=== PATIENT | female | born 1950 | race African-American/Black ===

== ENCOUNTER 2018-03-15 14:29 | Inpatient (IN) | payer MEDICARE ==
[~2018-03-15] VITALS: Ht 170.2 cm; Wt 99.3 kg
[2018-03-15 15:03] VITALS: BP 126/77
--- NOTE | 2018-03-15 15:09 | Emergency Room Report ---
History of Present Illness General Chief Complaint: Syncope Source: Patient, Family Member, EMS Present Illness HPI This patient was discharged from [facility] today. She was being brought home by her daughter and when she was getting out of the car to go home she noted that the patient was feeling shaky and noted that this was similar to previous episodes she has had which she is currently in workup for. She states that her mom then had an episode that she states she loses consciousness. She states that she did call EMS and 911 but by the time EMS arrived her mom is back to normal. She describes episodes as her mom's eyes rolling back in her head and she becomes unresponsive. She also does yawning and lip smacking usually prior to the episode. She has had many of these episodes and was supposed to see a neurologist and get an MRI yesterday but did not get this because she was admitted to [facility]. She is admitted to [facility] for an obstructive kidney stone causing kidney injury. She had been seen by a urologist and has an indwelling Frederick catheter. The stone was not removed and the daughter states that the urologist thought the stone would pass on its own. The patient has no current complaints. She denies pain. She denies nausea or vomiting. The patient is sleepy but will answer simple questions slowly. Allergies: Coded Allergies: No Known Allergies (Unverified , 03/15/18) Patient History Past Medical History: see triage record, other - pituitary tumor, hypothyroid ( on prednisone and synthroid) Social History: Denies: smoking, alcohol use, drug use Now: No Reviewed Nursing Documentation: PMH: Agreed; PSxH: Agreed Nursing Documentation-PMH Past Medical History: No History, Except For Review of Systems All Other Systems: negative except mentioned in HPI Physical Exam Vital Signs Date Time Temp Pulse Resp B/P (MAP) Pulse Ox O2 Delivery O2 Flow Rate FiO2 03/15/18 14:32 98.0 80 18 100/61 98 Room Air 98.1 Sp02 EP Interpretation: reviewed, normal General Appearance: no apparent distress, GCS 15, non-toxic, other - sleepy but arousable to answer yes/no and very basic questions. Head: normocephalic, atraumatic Eyes: bilateral eye normal inspection, bilateral eye PERRL ENT: hearing grossly normal, normal pharynx, no angioedema, normal voice Neck: full range of motion, supple/symm/no masses Respiratory: chest non-tender, lungs clear, normal breath sounds, no respiratory distress, no retraction, no accessory muscle use, speaking full sentences Cardiovascular #1: regular rate, rhythm, no edema Gastrointestinal: normal bowel sounds, non tender, soft, non-distended, no guarding, no rebound Rectal: deferred Musculoskeletal: back normal, normal range of motion, non-tender Neurologic: responsive, motor strength/tone normal, sensory intact, speech normal, other - sleepy, mild L. facial droop (family says this is baseline) Psychiatric: judgement/insight normal, mood/affect normal, no suicidal/ homicidal ideation Skin: normal color, no rash, warm/dry, well hydrated Medical Decision Making Diagnostic Impression: Primary Impression: CVA (cerebral vascular accident) Additional Impression: Seizure ER Course This patient presents with 2 episodes that historically are consistent with seizures. The patient also presented with a mental status that is most consistent with a post ictal state. I did obtain an MRI of the brain for concern of enlarging pituitary tumor. The pituitary tumor was identified, however, there was a CVA of the left frontal lobe identified on MRI. The patient was given aspirin and Keppra. The patient is admitted for further evaluation and treatment. Laboratory Tests Test 03/15/18 17:30 White Blood Count 11.2 K/UL (4.8-10.8) H Red Blood Count 4.43 M/UL (4.20-5.40) Hemoglobin 10.7 G/DL (12.0-16.0) L Hematocrit 32.4 % (37.0-47.0) L Mean Corpuscular Volume 73 FL (80-99) L Mean Corpuscular Hemoglobin 24.1 PG (27.0-31.0) L Mean Corpuscular Hemoglobin Concent 33.0 G/DL (32.0-36.0) Red Cell Distribution Width 11.8 % (11.6-14.8) Platelet Count 223 K/UL (150-450) Mean Platelet Volume 9.9 FL (6.5-10.1) Neutrophils (%) (Auto) 66.3 % (45.0-75.0) Lymphocytes (%) (Auto) 20.8 % (20.0-45.0) Monocytes (%) (Auto) 8.6 % (1.0-10.0) Eosinophils (%) (Auto) 2.3 % (0.0-3.0) Basophils (%) (Auto) 2.0 % (0.0-2.0) Prothrombin Time 12.6 SEC (9.30-11.50) H Prothrombin Time INR 1.2 (0.9-1.1) H PTT 27 SEC (23-33) Sodium Level 140 MMOL/L (136-145) Potassium Level 3.7 MMOL/L (3.5-5.1) Chloride Level 108 MMOL/L (98-107) H Carbon Dioxide Level 20 MMOL/L (21-32) L Anion Gap 12 mmol/L (5-15) Blood Urea Nitrogen 15 mg/dL (7-18) Creatinine 0.8 MG/DL (0.55-1.30) Estimate Glomerular Filtration Rate > 60 mL/min (>60) Glucose Level 100 MG/DL (74-106) Calcium Level 9.4 MG/DL (8.5-10.1) Total Bilirubin 0.7 MG/DL (0.2-1.0) Aspartate Amino Transferase (AST) 18 U/L (15-37) Alanine Aminotransferase (ALT) 17 U/L (12-78) Alkaline Phosphatase 82 U/L (46-116) Total Creatine Kinase 63 U/L (26-308) Creatine Kinase MB 0.5 NG/ML (0.0-3.6) Creatine Kinase MB Relative Index 0.7 Troponin I 0.010 ng/mL (0.000-0.056) Total Protein 6.8 G/DL (6.4-8.2) Albumin 3.3 G/DL (3.4-5.0) L Globulin 3.5 g/dL Albumin/Globulin Ratio 0.9 (1.0-2.7) L Thyroid Stimulating Hormone (TSH) 0.227 uiU/mL (0.358-3.740) Free Thyroxine Pending EKG Diagnostic Results Rate: normal Rhythm: NSR ST Segments: no acute changes Rhythm Strip Diag. Results EP Interpretation: yes Rate: 70's Rhythm: NSR, no PVC's, no ectopy Chest X-Ray Diagnostic Results Chest X-Ray Diagnostic Results : Chest X-Ray Ordered: Yes # of Views/Limited/Complete: 1 View Indication: Other - syncope EP Interpretation: No Interpretation: other - Questionable pulmonary interstitial congestive change. Impression: Other - See above Electronically Signed by: Wei Last Vital Signs Date Time Temp Pulse Resp B/P (MAP) Pulse Ox O2 Delivery O2 Flow Rate FiO2 03/15/18 15:03 98.1 79 18 126/77 98 Room Air 98.1 Disposition: ADMITTED INPATIENT Condition: Serious Iris Sr DO Mar 15, 2018 15:09
--- NOTE | 2018-03-15 15:43 | Diagnostic Imaging Report ---
Indication: Shortness of breath Technique: One view of the chest Comparison: none Findings: There is equivocal mild interstitial congestion. No focal airspace consolidation. Pleural spaces are clear. The heart size is borderline enlarged. The aorta is tortuous and ectatic Impression: Equivocal mild interstitial congestive changes. Correlate with clinical findings
--- NOTE | 2018-03-15 15:50 | Diagnostic Imaging Report ---
Indications: Altered mental status Technique: Spiral acquisitions obtained through the brain. Angled axial and coronal 5 x 5 mm slices were reconstructed. Total dose length product 1333.86 mGycm. CTDI vol(s) 70.38 mGy. Dose reduction achieved using automated exposure control Comparison: None. Findings: There is a mass within and expanding the sella turcica, also projecting into the suprasellar region. This is somewhat hyperattenuating, measures 2.3 cm transverse by 1.7 cm AP by 2.3 cm craniocaudad. This results in mild local mass effect, displacing the adjacent hypothalamus posterior and cephalad and posterior frontal cortical structures anterior and cephalad to a slight extent. There is evidence of prior right frontotemporal parietal craniotomy/craniectomy. There is age-related enlargement of the ventricles and extra axial CSF spaces. There is some periventricular deep white matter low-attenuation, consistent with chronic ischemic change. Multiple old lacunar infarcts are seen in the bilateral basal ganglia. There is some encephalomalacia in the right insular region which could represent an old lacunar infarct or could be encephalomalacia related to the prior surgery. No acute intracranial hemorrhage nor edema. No mass effect or midline shift other than the findings reported above. No evidence of acute calvarial injury. Visualized orbits and sinuses are unremarkable. The mastoids are clear Impression: Evidence of prior right frontotemporal parietal craniotomy/craniectomy. Correlate with surgical history 2.3 x 1.7 x 2.3 cm sellar/suprasellar mass, as described. Differential considerations include pituitary macroadenoma, meningioma, among other possibilities. Possibly related to the prior surgical exposure-correlate with prior surgical findings and any other prior imaging studies that may be available Mild local mass effect related to the above. No significant mass effect otherwise Negative for acute intracranial bleed or edema Right insular encephalomalacia, may be an old lacunar infarct versus related to prior surgery Other bilateral basal ganglia lacunar infarcts, as described Other chronic and age-related changes, as described The CT scanner at [facility] is accredited by the [employer] and the scans are performed using protocols designed to limit radiation exposure to as low as reasonably achievable to attain images of sufficient resolution adequate for diagnostic evaluation.
[2018-03-15] MEDS ORDERED: levETIRAcetam 500mg/NS100ml 100 ML IVPB ONE (16:45)
[2018-03-15 17:46] LABS: EOSINOPHILS % (AUTO) 2.3 % (0.0-3.0); HEMATOCRIT 32.4 % (37.0-47.0); HEMOGLOBIN 10.7 G/DL (12.0-16.0); LYMPHOCYTES % (AUTO) 20.8 % (20.0-45.0); MEAN CORPUSCULAR VOLUME 73 FL (80-99); MONOCYTES % (AUTO) 8.6 % (1.0-10.0); NEUTROPHILS % (AUTO) 66.3 % (45.0-75.0); PLATELET COUNT 223 K/UL (150-450); RED BLOOD COUNT 4.43 M/UL (4.20-5.40); RED CELL DISTRIBUTION WIDTH 11.8 % (11.6-14.8); WHITE BLOOD COUNT 11.2 K/UL (4.8-10.8)
[2018-03-15 17:57] LABS: INR 1.2 (0.9-1.1)
[2018-03-15 17:59] LABS: ANION GAP 12 mmol/L (5-15); BLOOD UREA NITROGEN 15 mg/dL (7-18); CALCIUM 9.4 MG/DL (8.5-10.1); CARBON DIOXIDE 20 MMOL/L (21-32); CHLORIDE 108 MMOL/L (98-107); CREATININE 0.8 MG/DL (0.55-1.30); POTASSIUM 3.7 MMOL/L (3.5-5.1); SODIUM 140 MMOL/L (136-145)
[2018-03-15 18:10] VITALS: BP 155/92
[2018-03-15 18:14] LABS: ALANINE AMINOTRANSFERASE 17 U/L (12-78); ALBUMIN 3.3 G/DL (3.4-5.0); ALBUMIN/GLOBULIN RATIO 0.9 (1.0-2.7); ALKALINE PHOSPHATASE 82 U/L (46-116); ASPARTATE AMINO TRANSFERASE 18 U/L (15-37); BILIRUBIN,TOTAL 0.7 MG/DL (0.2-1.0); CKMB 0.5 NG/ML (0.0-3.6); CREATINE KINASE 63 U/L (26-308)
[2018-03-15 18:49] LABS: APPEARANCE,URINE CLOUDY; BILIRUBIN, URINE NEGATIVE (NEGATIVE); GLUCOSE, URINE (UA) NEGATIVE (NEGATIVE); KETONES,URINE 1+ (NEGATIVE); LEUKOCYTE ESTERASE ,URINE 1+ (NEGATIVE); NITRITE,URINE NEGATIVE (NEGATIVE); PH,URINE 6.5 (4.5-8.0); PROTEIN,URINE 3+ (NEGATIVE); UROBILINOGEN,URINE 4 MG/DL (0.0-1.0)
[2018-03-15 18:54] LABS: COLOR,URINE YELLOW
[2018-03-15] MEDS ORDERED: Mylanta II UD 30ml ORAL PRN (19:15)
[2018-03-15] MEDS ORDERED: Morphine Sulfate 2mg/ml Inj(IV/IM USE ONLY) IVP PRN (19:15)
[2018-03-15] MEDS ORDERED: Zolpidem 5mg tab ORAL PRN (19:15)
[2018-03-15] MEDS ORDERED: LORazepam Inj 2mg/ml 1ml IV PRN (19:15)
[2018-03-15] MEDS ORDERED: Miralax 17gm pkt ORAL PRN (19:15)
[2018-03-15] MEDS: D5NS 1,000 ML IV SCH (20:19)
[2018-03-15] MEDS: cloNIDine 0.2mg Tab ORAL PRN ×2 (21:18→22:19)
[2018-03-15] MEDS: Heparin 5000 units/ml inj SUBQ SCH (21:19)
[2018-03-16] VITALS: BP 141/83
[2018-03-16 04:00] VITALS: BP 132/77
[2018-03-16 07:52] LABS: BASOPHILS % (AUTO) 1.4 % (0.0-2.0); EOSINOPHILS % (AUTO) 5.9 % (0.0-3.0); HEMATOCRIT 32.2 % (37.0-47.0); HEMOGLOBIN 9.9 G/DL (12.0-16.0); LYMPHOCYTES % (AUTO) 33.1 % (20.0-45.0); MEAN CORPUSCULAR VOLUME 73 FL (80-99); MONOCYTES % (AUTO) 9.8 % (1.0-10.0); NEUTROPHILS % (AUTO) 49.8 % (45.0-75.0); PLATELET COUNT 195 K/UL (150-450); RED BLOOD COUNT 4.39 M/UL (4.20-5.40); WHITE BLOOD COUNT 8.7 K/UL (4.8-10.8)
[2018-03-16 07:57] LABS: ALANINE AMINOTRANSFERASE 15 U/L (12-78); ALBUMIN 2.9 G/DL (3.4-5.0); ALBUMIN/GLOBULIN RATIO 0.9 (1.0-2.7); ALKALINE PHOSPHATASE 72 U/L (46-116); ANION GAP 9 mmol/L (5-15); ASPARTATE AMINO TRANSFERASE 17 U/L (15-37); BILIRUBIN,TOTAL 0.6 MG/DL (0.2-1.0); BLOOD UREA NITROGEN 12 mg/dL (7-18); CALCIUM 8.7 MG/DL (8.5-10.1); CARBON DIOXIDE 23 MMOL/L (21-32); CHLORIDE 110 MMOL/L (98-107); CREATININE 0.8 MG/DL (0.55-1.30); POTASSIUM 3.5 MMOL/L (3.5-5.1); SODIUM 142 MMOL/L (136-145)
[2018-03-16 08:00] VITALS: BP 141/82
[2018-03-16] MEDS: Heparin 5000 units/ml inj SUBQ SCH ×2 (08:20→22:28)
--- NOTE | 2018-03-16 10:10 | Diagnostic Imaging Report ---
Indication: Seizure 67-year-old female. Altered mental status. Syncopal episode. Technique: The head was imaged in a 1.5 Alba magnet. Sequences obtained include sagittal and axial T1 FLAIR, axial T2 fast spin echo with fat saturation, axial T2 FLAIR, diffusion and ADC map. Comparison: CT head 03/15/2018 There is a 10 x 5 mm focus of diffusion restriction within the left frontal white matter adjacent to the lateral ventricle. This is consistent with an acute nonhemorrhagic CVA. There is no associated edema or mass effect. There is no associated hemorrhage. There is a second focus of diffusion restriction/acute CVA which is seen as a 2 mm punctate focus in the left aspect of the yudi. Correlate clinically. There is a 1.9 x 2.3 x 2.3 cm heterogeneous mass within the sella. The mass abuts the optic chiasm extending into the suprasellar cistern. In addition the mass extends towards the right parasellar region involving the cavernous sinus and and appears to at least partially encase the right ICA. Good flow-void noted within the right ICA. Findings consistent with neoplasm. This may be a pituitary adenoma. The patient has had previous right frontal craniotomy. Mild to moderate atrophy of the brain noted with prominence of the sulci ventricles and basal cisterns. Moderate periventricular T2 hyperintense signal noted consistent chronic small vessel disease. The corpus callosum is unremarkable. Osseous bone marrow signal appears relatively normal. IMPRESSION: 10 x 5 mm acute CVA involving the left frontal sorensen radiata adjacent to the left lateral ventricle. Second tiny acute CVA within the left brainstem. Correlate clinically. 1.9 x 2.2 x 2.3 cm sellar mass with suprasellar extension. Evaluation with MRI of the sella with gadolinium would be appropriate. Status post right frontal craniotomy. Moderate atrophy of the brain Periventricular abnormal signal consistent chronic small vessel disease. [facility] has communicated the preliminary results to the Emergency Department. Their findings are largely concordant with this report.
--- NOTE | 2018-03-16 11:26 | History & Physical ---
History and Physical History & Physicial Dictated for Int Med-Dr Olmedo no. [id number]. Rd Hendrix MD Mar 16, 2018 11:26
[2018-03-16 12:00] VITALS: BP 139/83
[2018-03-16] MEDS: D5NS 1,000 ML IV SCH (12:10)
[2018-03-16] MEDS: cefTRIAXone 1 GM in D5W 55 ML IVPB SCH (12:40)
--- NOTE | 2018-03-16 12:49 | Consultation ---
History of Present Illness General Date patient seen: Mar 16, 2018 Chief Complaint: Syncope Present Illness HPI 67 year old female with hx of Pituitary tumor, HTN, kidney stone brought in by paramedics with cc of ALOC and possible seizures. S he was recently admitted to [facility] for an obstructive kidney stone causing kidney injury. She had been seen by a urologist and has an indwelling Frederick catheter. The patient has no current complaints. She denies pain. She denies nausea or vomiting. She is admitted to telemetry for further management. Allergies: Coded Allergies: No Known Allergies (Unverified , 03/15/18) Patient History Healthcare decision maker Resuscitation status Full Code Advanced Directive on File No Past Medical/Surgical History Past Medical/Surgical History: (1) Pituitary tumor (2) Nephrolithiasis (3) CVA (cerebral vascular accident) (4) Seizure Review of Systems All Other Systems: negative except mentioned in HPI Physical Exam General Appearance: WD/WN, no apparent distress Lines, tubes and drains: peripheral HEENT: normocephalic, atraumatic Neck: non-tender, normal alignment Respiratory/Chest: chest wall non-tender, lungs clear, normal breath sounds Breasts: no masses Cardiovascular/Chest: normal peripheral pulses, normal rate Abdomen: normal bowel sounds, non tender Genitourinary/Rectal: normal genital exam, normal rectal exam Extremities: normal range of motion, non-tender Skin Exam: normal pigmentation Last 24 Hour Vital Signs Date Time Temp Pulse Resp B/P (MAP) Pulse Ox O2 Delivery O2 Flow Rate FiO2 03/16/18 12:00 97.7 65 16 139/83 (101) 99 97.7 03/16/18 09:28 Room Air 03/16/18 08:00 70 03/16/18 08:00 98.1 72 20 141/82 (101) 98 98.1 03/16/18 04:00 98.6 71 18 132/77 (95) 98 98.6 03/16/18 03:55 71 03/16/18 00:00 98.9 64 17 141/83 (102) 96 98.9 03/15/18 23:55 76 03/15/18 22:19 169/99 03/15/18 21:03 Room Air 03/15/18 19:38 72 03/15/18 18:57 98.1 77 19 155/92 98 Room Air 98.1 03/15/18 18:10 98.1 77 19 155/92 98 Room Air 98.1 03/15/18 15:03 98.1 79 18 126/77 98 Room Air 98.1 03/15/18 14:32 98.0 80 18 100/61 98 Room Air 98.1 Intake and Output 03/15/18 03/16/18 19:00 07:00 Output Total 300 ml 1200 ml Balance -300 ml -1200 ml Output Urine Total 300 ml 1200 ml Laboratory Tests Test 03/15/18 17:30 03/15/18 18:30 03/16/18 07:20 White Blood Count 11.2 K/UL (4.8-10.8) H 8.7 K/UL (4.8-10.8) Red Blood Count 4.43 M/UL (4.20-5.40) 4.39 M/UL (4.20-5.40) Hemoglobin 10.7 G/DL (12.0-16.0) L 9.9 G/DL (12.0-16.0) L Hematocrit 32.4 % (37.0-47.0) L 32.2 % (37.0-47.0) L Mean Corpuscular Volume 73 FL (80-99) L 73 FL (80-99) L Mean Corpuscular Hemoglobin 24.1 PG (27.0-31.0) L 22.5 PG (27.0-31.0) L Mean Corpuscular Hemoglobin Concent 33.0 G/DL (32.0-36.0) 30.7 G/DL (32.0-36.0) L Red Cell Distribution Width 11.8 % (11.6-14.8) 12.0 % (11.6-14.8) Platelet Count 223 K/UL (150-450) 195 K/UL (150-450) Mean Platelet Volume 9.9 FL (6.5-10.1) 8.7 FL (6.5-10.1) Neutrophils (%) (Auto) 66.3 % (45.0-75.0) 49.8 % (45.0-75.0) Lymphocytes (%) (Auto) 20.8 % (20.0-45.0) 33.1 % (20.0-45.0) Monocytes (%) (Auto) 8.6 % (1.0-10.0) 9.8 % (1.0-10.0) Eosinophils (%) (Auto) 2.3 % (0.0-3.0) 5.9 % (0.0-3.0) H Basophils (%) (Auto) 2.0 % (0.0-2.0) 1.4 % (0.0-2.0) Prothrombin Time 12.6 SEC (9.30-11.50) H Prothromb Time International Ratio 1.2 (0.9-1.1) H Activated Partial Thromboplast Time 27 SEC (23-33) Sodium Level 140 MMOL/L (136-145) 142 MMOL/L (136-145) Potassium Level 3.7 MMOL/L (3.5-5.1) 3.5 MMOL/L (3.5-5.1) Chloride Level 108 MMOL/L (98-107) H 110 MMOL/L (98-107) H Carbon Dioxide Level 20 MMOL/L (21-32) L 23 MMOL/L (21-32) Anion Gap 12 mmol/L (5-15) 9 mmol/L (5-15) Blood Urea Nitrogen 15 mg/dL (7-18) 12 mg/dL (7-18) Creatinine 0.8 MG/DL (0.55-1.30) 0.8 MG/DL (0.55-1.30) Estimat Glomerular Filtration Rate > 60 mL/min (>60) > 60 mL/min (>60) Glucose Level 100 MG/DL (74-106) 92 MG/DL (74-106) Calcium Level 9.4 MG/DL (8.5-10.1) 8.7 MG/DL (8.5-10.1) Total Bilirubin 0.7 MG/DL (0.2-1.0) 0.6 MG/DL (0.2-1.0) Aspartate Amino Transf (AST/SGOT) 18 U/L (15-37) 17 U/L (15-37) Alanine Aminotransferase (ALT/SGPT) 17 U/L (12-78) 15 U/L (12-78) Alkaline Phosphatase 82 U/L (46-116) 72 U/L (46-116) Total Creatine Kinase 63 U/L (26-308) Creatine Kinase MB 0.5 NG/ML (0.0-3.6) Creatine Kinase MB Relative Index 0.7 Troponin I 0.010 ng/mL (0.000-0.056) Total Protein 6.8 G/DL (6.4-8.2) 6.2 G/DL (6.4-8.2) L Albumin 3.3 G/DL (3.4-5.0) L 2.9 G/DL (3.4-5.0) L Globulin 3.5 g/dL 3.3 g/dL Albumin/Globulin Ratio 0.9 (1.0-2.7) L 0.9 (1.0-2.7) L Thyroid Stimulating Hormone (TSH) 0.227 uiU/mL (0.358-3.740) Free Thyroxine 1.19 NG/DL (0.76-1.46) Urine Color Yellow Urine Appearance Cloudy Urine pH 6.5 (4.5-8.0) Urine Specific [place] 1.010 (1.005-1.035) Urine Protein 3+ (NEGATIVE) H Urine Glucose (UA) Negative (NEGATIVE) Urine Ketones 1+ (NEGATIVE) H Urine Blood 5+ (NEGATIVE) H Urine Nitrite Negative (NEGATIVE) Urine Bilirubin Negative (NEGATIVE) Urine Urobilinogen 4 MG/DL (0.0-1.0) H Urine Leukocyte Esterase 1+ (NEGATIVE) H Urine RBC Tntc /HPF (0 - 2) H Urine WBC 10-15 /HPF (0 - 2) H Urine Squamous Epithelial Cells Few /LPF (NONE/OCC) Urine Bacteria Many /HPF (NONE) H Urine Opiates Screen Negative (NEGATIVE) Urine Barbiturates Screen Negative (NEGATIVE) Phencyclidine (PCP) Screen Negative (NEGATIVE) Urine Amphetamines Screen Negative (NEGATIVE) Urine Benzodiazepines Screen Negative (NEGATIVE) Urine Cocaine Screen Negative (NEGATIVE) Urine Marijuana (THC) Screen Negative (NEGATIVE) Microbiology Date/Time Source Procedure Growth Status 03/15/18 18:30 Urine,Clean Catch Urine Culture - Preliminary Gram Negative Bacillus 1 Resulted Height (Feet): 5 Height (Inches): 7.00 Weight (Pounds): 219 Medications Current Medications Medications (Trade) Dose Ordered Sig/Elias Route PRN Reason Start Time Stop Time Status Last Admin Dose Admin Acetaminophen (Tylenol) 650 mg Q4H PRN ORAL fever 03/15/18 19:15 04/14/18 19:14 Al Hydroxide/Mg Hydroxide (Mylanta II) 30 ml Q6H PRN ORAL dyspepsia 03/15/18 19:15 04/14/18 19:14 Ceftriaxone Sodium 1 gm/ Dextrose 55 ml @ 110 mls/hr DAILY IVPB 03/16/18 12:00 03/23/18 11:59 Clonidine HCl (Catapres tab) 0.2 mg Q6H PRN ORAL SBP <160 03/15/18 21:15 04/14/18 21:14 03/15/18 22:19 Dextrose (Dextrose 50%) 25 ml PRN IV Hypoglycemia 03/15/18 19:30 04/14/18 19:29 Dextrose (Dextrose 50%) 50 ml PRN IV hypoglycemia 03/15/18 19:30 04/14/18 19:29 Dextrose/Sodium Chloride 1,000 ml @ 60 mls/hr [id number] IV 03/15/18 20:15 04/14/18 20:14 03/16/18 12:10 Heparin Sodium (Porcine) (Heparin 5000 units/ml) 5,000 units EVERY 12 HOURS SUBQ 03/15/18 21:00 04/14/18 20:59 03/16/18 08:20 Levothyroxine Sodium (Synthroid) 112 mcg DAILY@0630 ORAL 03/16/18 06:30 04/15/18 06:29 03/16/18 05:55 Lorazepam (Ativan 2mg/ml 1ml) 2 mg Q1H PRN IV seizures 03/15/18 19:15 03/22/18 19:14 Morphine Sulfate (Morphine Sulfate) 1 mg Q4H PRN IVP For Pain 03/15/18 19:15 03/22/18 19:14 Ondansetron HCl (Zofran) 4 mg Q6H PRN IVP Nausea & Vomiting 03/15/18 19:15 04/14/18 19:14 Polyethylene Glycol (Miralax) 17 gm HSPRN PRN ORAL Constipation 03/15/18 19:15 04/14/18 19:14 Prednisone (predniSONE) 5 mg DAILY ORAL 03/16/18 09:00 04/15/18 08:59 03/16/18 08:20 Zolpidem Tartrate (Ambien) 5 mg HSPRN PRN ORAL Insomnia 03/15/18 19:15 03/22/18 19:14 Assessment/Plan Problem List: (1) Acute encephalopathy ICD Codes: G93.40 - Encephalopathy, unspecified SNOMED: 84477037, 733956359 (2) Seizure ICD Codes: R56.9 - Unspecified convulsions SNOMED: 53299062 (3) Nephrolithiasis ICD Codes: N20.0 - Calculus of kidney SNOMED: 58623858 (4) Pituitary tumor ICD Codes: D49.7 - Neoplasm of unspecified behavior of endocrine glands and other parts of nervous system SNOMED: 982412197 (5) CVA (cerebral vascular accident) ICD Codes: I63.9 - Cerebral infarction, unspecified SNOMED: 426446976 Assessment/Plan telemetry monitoring neuro evaluation endo evaluation symptomatic treatment MRI brain. Alvin Corbett MD Mar 16, 2018 12:49
--- NOTE | 2018-03-16 13:37 | Consultation ---
History of Present Illness General Date patient seen: Mar 16, 2018 Chief Complaint: Syncope Present Illness HPI The pt with hx of brain craniotomy and atrophy who was being brought home by her daughter from [facility] and when she was getting out of the car to go home she noted that the patient was feeling shaky and noted that this was similar to previous episodes. the pt has waxing and waning of consciousness and is oriented to self and place she is a poor historian and is forgetful/ Allergies: Coded Allergies: No Known Allergies (Unverified , 03/15/18) Patient History Limited by: medical condition History Provided By: Patient, Medical Record, PMD Healthcare decision maker Resuscitation status Full Code Advanced Directive on File No Past Medical/Surgical History Past Medical/Surgical History: (1) Nephrolithiasis (2) Seizure (3) CVA (cerebral vascular accident) (4) Pituitary tumor (5) Acute encephalopathy Review of Systems Psychiatric: Reports: prior hx, anxiety, depressed feelings Physical Exam General Appearance: no apparent distress, alert Last 24 Hour Vital Signs Date Time Temp Pulse Resp B/P (MAP) Pulse Ox O2 Delivery O2 Flow Rate FiO2 03/16/18 12:00 97.7 65 16 139/83 (101) 99 97.7 03/16/18 09:28 Room Air 03/16/18 08:00 70 03/16/18 08:00 98.1 72 20 141/82 (101) 98 98.1 03/16/18 04:00 98.6 71 18 132/77 (95) 98 98.6 03/16/18 03:55 71 03/16/18 00:00 98.9 64 17 141/83 (102) 96 98.9 03/15/18 23:55 76 03/15/18 22:19 169/99 03/15/18 21:03 Room Air 03/15/18 19:38 72 03/15/18 18:57 98.1 77 19 155/92 98 Room Air 98.1 03/15/18 18:10 98.1 77 19 155/92 98 Room Air 98.1 03/15/18 15:03 98.1 79 18 126/77 98 Room Air 98.1 03/15/18 14:32 98.0 80 18 100/61 98 Room Air 98.1 Intake and Output 8/28/18 8/29/18 19:00 07:00 Output Total 300 ml 1200 ml Balance -300 ml -1200 ml Output Urine Total 300 ml 1200 ml Laboratory Tests Test 03/15/18 17:30 03/15/18 18:30 03/16/18 07:20 White Blood Count 11.2 K/UL (4.8-10.8) H 8.7 K/UL (4.8-10.8) Red Blood Count 4.43 M/UL (4.20-5.40) 4.39 M/UL (4.20-5.40) Hemoglobin 10.7 G/DL (12.0-16.0) L 9.9 G/DL (12.0-16.0) L Hematocrit 32.4 % (37.0-47.0) L 32.2 % (37.0-47.0) L Mean Corpuscular Volume 73 FL (80-99) L 73 FL (80-99) L Mean Corpuscular Hemoglobin 24.1 PG (27.0-31.0) L 22.5 PG (27.0-31.0) L Mean Corpuscular Hemoglobin Concent 33.0 G/DL (32.0-36.0) 30.7 G/DL (32.0-36.0) L Red Cell Distribution Width 11.8 % (11.6-14.8) 12.0 % (11.6-14.8) Platelet Count 223 K/UL (150-450) 195 K/UL (150-450) Mean Platelet Volume 9.9 FL (6.5-10.1) 8.7 FL (6.5-10.1) Neutrophils (%) (Auto) 66.3 % (45.0-75.0) 49.8 % (45.0-75.0) Lymphocytes (%) (Auto) 20.8 % (20.0-45.0) 33.1 % (20.0-45.0) Monocytes (%) (Auto) 8.6 % (1.0-10.0) 9.8 % (1.0-10.0) Eosinophils (%) (Auto) 2.3 % (0.0-3.0) 5.9 % (0.0-3.0) H Basophils (%) (Auto) 2.0 % (0.0-2.0) 1.4 % (0.0-2.0) Prothrombin Time 12.6 SEC (9.30-11.50) H Prothromb Time International Ratio 1.2 (0.9-1.1) H Activated Partial Thromboplast Time 27 SEC (23-33) Sodium Level 140 MMOL/L (136-145) 142 MMOL/L (136-145) Potassium Level 3.7 MMOL/L (3.5-5.1) 3.5 MMOL/L (3.5-5.1) Chloride Level 108 MMOL/L (98-107) H 110 MMOL/L (98-107) H Carbon Dioxide Level 20 MMOL/L (21-32) L 23 MMOL/L (21-32) Anion Gap 12 mmol/L (5-15) 9 mmol/L (5-15) Blood Urea Nitrogen 15 mg/dL (7-18) 12 mg/dL (7-18) Creatinine 0.8 MG/DL (0.55-1.30) 0.8 MG/DL (0.55-1.30) Estimat Glomerular Filtration Rate > 60 mL/min (>60) > 60 mL/min (>60) Glucose Level 100 MG/DL (74-106) 92 MG/DL (74-106) Calcium Level 9.4 MG/DL (8.5-10.1) 8.7 MG/DL (8.5-10.1) Total Bilirubin 0.7 MG/DL (0.2-1.0) 0.6 MG/DL (0.2-1.0) Aspartate Amino Transf (AST/SGOT) 18 U/L (15-37) 17 U/L (15-37) Alanine Aminotransferase (ALT/SGPT) 17 U/L (12-78) 15 U/L (12-78) Alkaline Phosphatase 82 U/L (46-116) 72 U/L (46-116) Total Creatine Kinase 63 U/L (26-308) Creatine Kinase MB 0.5 NG/ML (0.0-3.6) Creatine Kinase MB Relative Index 0.7 Troponin I 0.010 ng/mL (0.000-0.056) Total Protein 6.8 G/DL (6.4-8.2) 6.2 G/DL (6.4-8.2) L Albumin 3.3 G/DL (3.4-5.0) L 2.9 G/DL (3.4-5.0) L Globulin 3.5 g/dL 3.3 g/dL Albumin/Globulin Ratio 0.9 (1.0-2.7) L 0.9 (1.0-2.7) L Thyroid Stimulating Hormone (TSH) 0.227 uiU/mL (0.358-3.740) Free Thyroxine 1.19 NG/DL (0.76-1.46) Urine Color Yellow Urine Appearance Cloudy Urine pH 6.5 (4.5-8.0) Urine Specific [place] 1.010 (1.005-1.035) Urine Protein 3+ (NEGATIVE) H Urine Glucose (UA) Negative (NEGATIVE) Urine Ketones 1+ (NEGATIVE) H Urine Blood 5+ (NEGATIVE) H Urine Nitrite Negative (NEGATIVE) Urine Bilirubin Negative (NEGATIVE) Urine Urobilinogen 4 MG/DL (0.0-1.0) H Urine Leukocyte Esterase 1+ (NEGATIVE) H Urine RBC Tntc /HPF (0 - 2) H Urine WBC 10-15 /HPF (0 - 2) H Urine Squamous Epithelial Cells Few /LPF (NONE/OCC) Urine Bacteria Many /HPF (NONE) H Urine Opiates Screen Negative (NEGATIVE) Urine Barbiturates Screen Negative (NEGATIVE) Phencyclidine (PCP) Screen Negative (NEGATIVE) Urine Amphetamines Screen Negative (NEGATIVE) Urine Benzodiazepines Screen Negative (NEGATIVE) Urine Cocaine Screen Negative (NEGATIVE) Urine Marijuana (THC) Screen Negative (NEGATIVE) Microbiology Date/Time Source Procedure Growth Status 03/15/18 18:30 Urine,Clean Catch Urine Culture - Preliminary Gram Negative Bacillus 1 Resulted Height (Feet): 5 Height (Inches): 7.00 Weight (Pounds): 219 Medications Current Medications Medications (Trade) Dose Ordered Sig/Elias Route PRN Reason Start Time Stop Time Status Last Admin Dose Admin Acetaminophen (Tylenol) 650 mg Q4H PRN ORAL fever 03/15/18 19:15 04/14/18 19:14 Al Hydroxide/Mg Hydroxide (Mylanta II) 30 ml Q6H PRN ORAL dyspepsia 03/15/18 19:15 04/14/18 19:14 Ceftriaxone Sodium 1 gm/ Dextrose 55 ml @ 110 mls/hr DAILY IVPB 03/16/18 12:00 03/23/18 11:59 03/16/18 12:40 Clonidine HCl (Catapres tab) 0.2 mg Q6H PRN ORAL SBP <160 03/15/18 21:15 04/14/18 21:14 03/15/18 22:19 Dextrose (Dextrose 50%) 25 ml PRN IV Hypoglycemia 03/15/18 19:30 04/14/18 19:29 Dextrose (Dextrose 50%) 50 ml PRN IV hypoglycemia 03/15/18 19:30 04/14/18 19:29 Heparin Sodium (Porcine) (Heparin 5000 units/ml) 5,000 units EVERY 12 HOURS SUBQ 03/15/18 21:00 04/14/18 20:59 03/16/18 08:20 Levothyroxine Sodium (Synthroid) 112 mcg DAILY@0630 ORAL 03/16/18 06:30 04/15/18 06:29 03/16/18 05:55 Lorazepam (Ativan 2mg/ml 1ml) 2 mg Q1H PRN IV seizures 03/15/18 19:15 03/22/18 19:14 Morphine Sulfate (Morphine Sulfate) 1 mg Q4H PRN IVP For Pain 03/15/18 19:15 03/22/18 19:14 Ondansetron HCl (Zofran) 4 mg Q6H PRN IVP Nausea & Vomiting 03/15/18 19:15 04/14/18 19:14 Polyethylene Glycol (Miralax) 17 gm HSPRN PRN ORAL Constipation 03/15/18 19:15 04/14/18 19:14 Prednisone (predniSONE) 5 mg DAILY ORAL 03/16/18 09:00 04/15/18 08:59 03/16/18 08:20 Zolpidem Tartrate (Ambien) 5 mg HSPRN PRN ORAL Insomnia 03/15/18 19:15 03/22/18 19:14 Assessment/Plan Assessment/Plan encephalopathy due to CVA - ativan prn -provided ro/Nelsy Elizondo MD Mar 16, 2018 13:37
--- NOTE | 2018-03-16 15:57 | Diagnostic Imaging Report ---
Indication: History of kidney stones. Flank pain. Technique: Grayscale and duplex Doppler imaging of the kidneys performed. Comparison: None Findings: The size, contour, and echogenicity of both kidneys are within normal limits. There is no hydronephrosis. The IVC and urinary bladder are unremarkable. Right kidney 10.3. The left kidney 9.7 cm. Frederick catheter is noted. IMPRESSION: Negative exam
[2018-03-16 16:00] VITALS: BP 134/86
--- NOTE | 2018-03-16 16:48 | Cardiology Report ---
APPROVED REPORT EKG Measurement Heart [id number] Normal sinus rhythm with sinus arrhythmia Nonspecific T wave abnormality Abnormal ECG
--- NOTE | 2018-03-16 17:28 | Consultation ---
Consult Note Consult Note NEUROLOGY CONSULTATION: Full note dictated #[id number] 67 y/o, RH, BF with a 20 year H/O pituitary adenoma followed in the [facility]. Over the last few years she has also had over 20 episodes where she suddenly loses consciousness for a few seconds to a minute or two when she is erect. These episodes are never preceded or followed by any symptoms and her mind is clear as soon as she wakes up. She has no abnormal movements. She was recently hospitalized at for an obstructive kidney stone causing acute kidney injury. She was seen by a urologist and had an indwelling Frederick catheter. The stone was not removed. She was on her way home and was getting out of her car when she had her last episode of LOC. ON EXAM: Problems with orientation, recent and remote memory, VSF and HCF. Mild right hemiparesis and right lower extremity apraxia. Globally diminished DTRs. Right hemiparetic and apractic gait. IMPRESSION: Episodes of LOC syncope vs seizures. Right paresis due to left frontal infarct. Incidental small left pontine infarct. Cognitive impairement. REC: EEG Carotid duplex. Plavix 75 mg q d. W/U for CVD/cognitive dysfunction. PT/OT Observe Barb Amin M.D., M.S.P.BARB ALTMAN Mar 16, 2018 17:28
--- NOTE | 2018-03-16 18:15 | History and Physical Report ---
DATE OF ADMISSION: 03/15/2018 CHIEF COMPLAINT/HISTORY OF PRESENT ILLNESS: The patient is a 67-year-old female who presents with chief complaint of "I passed out." The patient apparently was admitted to [facility] for left renal calculus. The patient was discharged on 03/15/2018 with a Frederick catheter in place. The patient was told to follow up with the urologist. According to the patient, she passed out while in the car going home from [facility]. EMS was called. The patient was transferred to [facility]. The patient is admitted for syncopal episode to rule out seizure versus cerebrovascular accident. PAST MEDICAL HISTORY: Significant for 1. Pituitary macroadenoma, which is followed in [place]. 2. Hypothyroidism. PAST SURGICAL HISTORY: Significant for craniotomy secondary to pituitary adenoma as above. CURRENT MEDICATIONS: Synthroid of an unknown dose. ALLERGIES: No known drug allergies. SOCIAL HISTORY: The patient is single, however, lives with the significant other. The patient denies tobacco or alcohol use. REVIEW OF SYSTEMS: CONSTITUTIONAL: The patient denies weight loss or weight gain. The patient denies fevers or chills. HEENT: The patient denies ear or throat pain. The patient denies headache. CARDIOVASCULAR: The patient denies palpitations or chest pain. CHEST: The patient denies wheeze or shortness of breath. ABDOMEN: The patient denies nausea, vomiting, diarrhea, or constipation. GENITOURINARY: The patient denies dysuria or increased frequency of urination. NEUROMUSCULAR: The patient complains of syncopal episode as above. The patient denies seizures or generalized weakness. PHYSICAL EXAMINATION: GENERAL: The patient is a well-developed and well-nourished female, in no apparent distress. VITAL SIGNS: Temperature 98.9 degrees, respirations 17, pulse 64, and blood pressure 141/83. HEENT: Eyes, pupils equal and responsive to light and accommodation. Extraocular movements are intact. NECK: Supple. No lymphadenopathy. CHEST: Lungs are clear to auscultation bilaterally without wheezes or rales. CARDIOVASCULAR: Regular rate. S1 and S2 are normal without murmurs, rubs, or gallops. ABDOMEN: Soft, nontender, and nondistended. Positive bowel sounds. No evidence of hepatosplenomegaly. Currently, no rebound or guarding noted. EXTREMITIES: Negative for clubbing, cyanosis, or edema. RECTAL: Refused. GENITAL: Refused. NEUROLOGIC: Cranial nerves II through XII are grossly intact without focal deficits. Motor strength is 5/5 bilaterally. Deep tendon reflexes are 2+ plantar. LABORATORY AND DIAGNOSTIC DATA: WBC 11.2, hemoglobin 10.7, hematocrit 32.5 and platelets 223,000. Sodium 140, potassium 3.7, chloride 108, CO2 20, BUN 15, creatinine 0.8 and glucose 100. Urinalysis showed 3+ protein, 1+ ketones, 5+ blood, 1+ leukocyte esterase, rbc's too numerous to count, and wbc's [address] scan of the brain revealed evidence of frontotemporoparietal craniotomy and 2.3 x 1.7 x 2.3 sellar/suprasellar mass. An MRI of the brain revealed an acute left frontal sorensen radiata and left brainstem stroke. Left brainstem cerebrovascular accident. ASSESSMENT: This is a 67-year-old female: 1. Acute cerebrovascular accident. 2. Syncopal episode. 3. Urinary tract infection. 4. History of left renal calculus. 5. Hypothyroidism. 6. History of pituitary macroadenoma. TREATMENT: 1. Syncope/acute cerebrovascular accident/pituitary adenoma. A Neurology consultation has been obtained with Dr. Dev Amin. We will follow recommendations of Neurology. The patient has been started empirically on aspirin. 2. Left renal calculus/urinary tract infection. The patient has been started empirically on ceftriaxone intravenously. Urine culture is pending. A renal ultrasound is pending. If the stone does not pass, Urology consultation will be obtained. 3. Hypothyroidism. Continue Synthroid. Rd Hendrix M.D. DR: MAYITO JOB#: [id number] CC:
[2018-03-16 20:00] VITALS: BP 128/82
--- NOTE | 2018-03-16 22:30 | Consultation ---
DATE OF CONSULTATION: 03/16/2018 NEUROLOGY CONSULTATION CONSULTING PHYSICIAN: Dev Amin M.D. REQUESTING PHYSICIAN: Rd Hendrix M.D. HISTORY: Ms. Maria Elena Mcmullen is a 67-year-old, right-handed, black lady, with a relatively benign past history other than a pituitary adenoma for the last 20 years, which is followed in the [place] [facility]. Over the last few years, she has also had over 20 episodes where she suddenly loses consciousness for a few seconds to a few minutes at a time when she is erect. These episodes are never preceded or followed by any symptoms and there is no dizziness, lightheadedness, or unsteadiness when she has these episodes. Her mind is clear as soon as she wakes up. No abnormal movements have been noted other than some mild tremulousness at times. She was recently hospitalized at [facility] for an obstructive kidney stone causing acute kidney injury. She was seen by a urologist and an indwelling Frederick catheter was placed and she was sent home with a hope that this stone would pass on its own. She was on her way home getting out of her car when she suddenly lost consciousness. Again, she had no warning prior to the event and she rapidly woke up. By the time, the paramedics got to her, she felt that she was back to her normal self. She denies any weakness on one side or the other, numbness on one side or the other, problems with speech, problems with language, problems with vision, or problems with her memory, however, her son who was with her tells me that her memory has been deteriorating in the near past. Her son has seen some of the events during which passes out and he states that she is quite normal prior to the episode and then suddenly drops down. She rapidly regains consciousness and is back to her normal self within a few seconds. PAST MEDICAL HISTORY: Significant for pituitary adenoma, episodic loss of consciousness, and recently diagnosed kidney stone. FAMILY HISTORY: Nothing significant. PERSONAL HISTORY: Home: She lives with her . 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 Habits: She denies the use of alcohol, tobacco, or illicit drugs. MEDICATIONS: Present medications include ceftriaxone, prednisone 5 mg daily, Synthroid, clonidine, heparin for DVT prophylaxis, Mylanta as needed, Ambien as needed, lorazepam as needed, Zofran as needed, MiraLAX as needed, Tylenol as needed, and morphine sulfate as needed. PHYSICAL EXAMINATION: GENERAL: She is a well-developed, well-nourished, pleasant black lady, lying in bed, in no acute distress. VITAL SIGNS: Pulse 65/minute, blood pressure 134/86 mmHg, respirations 16/minute, and temperature 97.5 degrees Fahrenheit. HEAD: Normocephalic and atraumatic. EENT: Examination benign. NECK: No neck rigidity was observed. NEUROLOGICAL EXAMINATION: MENTAL STATUS EXAMINATION: She was awake and alert. She was oriented to self, hospital, and 2018. She did not know the name of the hospital, date, or month. She was able to recall 3/3 words immediately, but could not remember any of the 3 words in 1 minute and 3 minutes. She was able to remember presidents, Trump and Obama with hints, but could not remember presidents prior to that. Her mathematical skills were impaired. Her visuospatial function was also impaired. SPEECH: She had no dysarthria. LANGUAGE: She had anomia for low and mid frequency words. CRANIAL NERVE EXAMINATION: II: The visual martinez were intact to confrontation testing. III, IV & : The external ocular movements were full and the pupils 3 mm in diameter, equal, round, regular, and reactive to light. V: She had normal facial sensations and the temporales, masseters, and pterygoids function normally. VII: She had a mild right seventh central facial paresis. VIII: She was able to hear and had no nystagmus. IX: The palate moved symmetrically on phonation. X: She had no hoarseness of voice. XI: The sternocleidomastoids and trapezii functioned normally. XII: The tongue was in the midline without any fasciculations or atrophy. MOTOR SYSTEM: The tone was normal in all four extremities. Examination of muscle mass revealed no focal wasting. Examination of power revealed G 5/5 power except for G 4+/5 power in the right finger extensors and iliopsoas. SENSORY EXAMINATION: She had intact sensations to pinprick, light touch, and graphesthesia. COORDINATION: Rzqrhd-[id number] and [id number] testing were minimally clumsy bilaterally. Romberg test could not be performed. REFLEXES: Trace+ and bilaterally symmetrical at the biceps, triceps, brachioradialis, and knees, 0 at both ankles. The plantar responses were flexor bilaterally. STANCE: She stood up with support. GAIT: She walked with support with right hemiparetic and apractic gait. DIAGNOSTIC IMPRESSION: 1. Ms. Maria Elena Mcmullen is a 67-year-old, right-handed, black lady, with a prior history of pituitary adenoma, multiple episodes of loss of consciousness in the last few years that are always sudden when she is erect and not preceded or followed by any other symptoms, who was recently hospitalized at [facility] for obstructive kidney stone and acute kidney injury. She was on her way home getting out of car when she suddenly had another episode of loss of consciousness. 2. On neurological examination, at this time, she does have problems with orientation, recent and remote memory, visuospatial function, higher cognitive function, and language. She also has a mild right hemiparesis involving the face and upper and lower extremities and in addition right lower extremity apraxia. The deep tendon reflexes are globally diminished and she has right hemiparetic and apractic gait. 3. Laboratory data obtained thus far have revealed on admission her WBC count was elevated to 11,200. She was mildly anemic with a hemoglobin of 10.7 G. The chemistry panel was relatively benign, but her albumin was low at 2.9. Her TSH was low at 0.227, but her free T4 was normal at 1.19. Her urine toxicology screen was benign. Her urinalysis however revealed 1+ leukocyte esterase, too numerous to count red blood cells, and 10-15 white blood cells per high-power field. 4. An MRI scan of the brain revealed a 10 mm x 5 mm acute left frontal sorensen radiata infarct, a tiny punctate left pontine infarct, and sellar/suprasellar mass measuring 1.9 x 2.2 x 2.3 cm. In addition, sequelae of a right frontal craniotomy was also seen. She also demonstrated periventricular abnormal signal consistent with chronic small vessel disease. 5. The patient's history, neurological examination, laboratory data, and imaging studies are most compatible with episodes of loss of consciousness, which may either represent syncopal events or less likely ictal events. 6. The right hemiparesis is due to the left frontal infarct of an acute nature. 7. She does have an incidental small left pontine infarct, which at this point in time is asymptomatic. 8. She does have cognitive impairment. RECOMMENDATIONS: 1. Agree with management thus far. 2. An EEG will be ordered to evaluate the patient for ongoing ictal or interictal phenomena. 3. A carotid duplex will be ordered to evaluate the patient for hemodynamically significant carotid disease. 4. The patient will be started on Plavix 75 mg daily for secondary stroke prophylaxis. 5. She will be worked up thoroughly for other treatable causes of cerebrovascular disease and cognitive dysfunction with in addition to the laboratory tests already done, a B12 level, folate level, vitamin D level, RPR, glycohemoglobin, Westergren sedimentation rate, and fasting serum lipid panel. 6. She will be started on a course of physical and occupational therapy to rehabilitate her. 7. She will be observed closely and depending on how she fares over the next day or so, further recommendations will be given. Thank you for entrusting me with the care of Ms. Mcmullen. I shall follow her with you. Dev Amin M.D., M.S.P.H. DR: JOSSIE JOB#: [id number] MTDD
[2018-03-17 00:34] VITALS: BP 136/76
[2018-03-17 04:29] VITALS: BP 143/88
[2018-03-17 06:35] LABS: BASOPHILS % (AUTO) 1.4 % (0.0-2.0); HEMATOCRIT 32.1 % (37.0-47.0); HEMOGLOBIN 9.9 G/DL (12.0-16.0); LYMPHOCYTES % (AUTO) 40.7 % (20.0-45.0); MEAN CORPUSCULAR VOLUME 73 FL (80-99); MONOCYTES % (AUTO) 5.9 % (1.0-10.0); PLATELET COUNT 206 K/UL (150-450); RED BLOOD COUNT 4.41 M/UL (4.20-5.40); RED CELL DISTRIBUTION WIDTH 11.9 % (11.6-14.8)
[2018-03-17 07:11] LABS: ANION GAP 7 mmol/L (5-15); BLOOD UREA NITROGEN 14 mg/dL (7-18); CALCIUM 9.7 MG/DL (8.5-10.1); CARBON DIOXIDE 25 MMOL/L (21-32); CHLORIDE 106 MMOL/L (98-107); CREATININE 0.9 MG/DL (0.55-1.30); POTASSIUM 3.6 MMOL/L (3.5-5.1); SODIUM 137 MMOL/L (136-145)
--- NOTE | 2018-03-17 07:20 | General Progress Note ---
Assessment/Plan Problem List: (1) Secondary adrenal insufficiency ICD Codes: E27.49 - Other adrenocortical insufficiency SNOMED: 39898796 (2) Secondary hypothyroidism ICD Codes: E03.8 - Other specified hypothyroidism SNOMED: 04927840 (3) Nephrolithiasis ICD Codes: N20.0 - Calculus of kidney SNOMED: 18439005 (4) Pituitary tumor ICD Codes: D49.7 - Neoplasm of unspecified behavior of endocrine glands and other parts of nervous system SNOMED: 611427179 (5) Acute encephalopathy ICD Codes: G93.40 - Encephalopathy, unspecified SNOMED: 73376747, 700803368 Assessment/Plan hypothyroidism is adequately replaced TSH measurement is useless since the etiology is central free T4 is at target => continue Levothyroxine 112 mcg daily and do NOT change adrenal insufficiency is covered by Prednisone 5 mg daily no need for stress dose I reviewed her records at [facility] as well as [facility] she is followed by endo at [facility] - Dr Irais Keene Subjective Allergies: Coded Allergies: No Known Allergies (Unverified , 03/15/18) All Systems: reviewed and negative except above Subjective admitted with syncope after being discharged from [facility] and was on her way home 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 which has been stable in size according to [facility] records 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 and she is on replacement with Prednisone 5 mg daily and Levothyroxine 112 mcg daily she is followed by public health dentist - Dr Irais Keene at [facility] - and had a recent evaluation this months Objective Last 24 Hour Vital Signs Date Time Temp Pulse Resp B/P (MAP) Pulse Ox O2 Delivery O2 Flow Rate FiO2 03/17/18 04:29 98.7 70 18 143/88 (106) 100 98.7 03/17/18 04:00 64 03/17/18 00:34 98.6 57 18 136/76 (96) 100 98.6 03/17/18 00:09 61 03/16/18 21:00 Room Air 03/16/18 20:00 98.6 63 18 128/82 (97) 97 98.6 03/16/18 19:02 64 03/16/18 16:00 63 03/16/18 16:00 97.5 65 16 134/86 (102) 97 97.5 03/16/18 12:00 62 03/16/18 12:00 97.7 65 16 139/83 (101) 99 97.7 03/16/18 09:28 Room Air 03/16/18 08:00 70 03/16/18 08:00 98.1 72 20 141/82 (101) 98 98.1 Intake and Output 03/16/18 03/17/18 19:00 07:00 Intake Total 535 ml Output Total 1450 ml 1100 ml Balance -915 ml -1100 ml Intake Oral 240 ml IV Total 295 ml Output Urine Total 1450 ml 1100 ml # Voids 1 Laboratory Tests 03/16/18 07:20: White Blood Count 8.7, Red Blood Count 4.39, Hemoglobin 9.9L, Hematocrit 32.2L, Mean Corpuscular Volume 73L, Mean Corpuscular Hemoglobin 22.5L, Mean Corpuscular Hemoglobin Concent 30.7L, Red Cell Distribution Width 12.0, Platelet Count 195, Mean Platelet Volume 8.7, Neutrophils (%) (Auto) 49.8, Lymphocytes (%) (Auto) 33.1, Monocytes (%) (Auto) 9.8, Eosinophils (%) (Auto) 5.9H, Basophils (%) (Auto) 1.4, Sodium Level 142, Potassium Level 3.5, Chloride Level 110H, Carbon Dioxide Level 23, Anion Gap 9, Blood Urea Nitrogen 12, Creatinine 0.8, Estimat Glomerular Filtration Rate > 60, Glucose Level 92, Calcium Level 8.7, Total Bilirubin 0.6, Aspartate Amino Transf (AST/SGOT) 17, Alanine Aminotransferase (ALT/SGPT) 15, Alkaline Phosphatase 72, Total Protein 6.2L, Albumin 2.9L, Globulin 3.3, Albumin/Globulin Ratio 0.9L 03/16/18 18:55: Erythrocyte Sedimentation Rate 38H, Hemoglobin A1c 5.1, Vitamin B12 Level 482, Vitamin D 25-Hydroxy [Pending], 25-Hydroxy Vitamin D2 [Pending], 25-Hydroxy Vitamin D3 [Pending], Folate 5.9L, Rapid Plasma Reagin [Pending] 03/17/18 05:25: White Blood Count 10.0, Red Blood Count 4.41, Hemoglobin 9.9L, Hematocrit 32.1L , Mean Corpuscular Volume 73L, Mean Corpuscular Hemoglobin 22.5L, Mean Corpuscular Hemoglobin Concent 30.9L, Red Cell Distribution Width 11.9, Platelet Count 206, Mean Platelet Volume 8.6, Neutrophils (%) (Auto) 48.0, Lymphocytes (%) (Auto) 40.7, Monocytes (%) (Auto) 5.9, Eosinophils (%) (Auto) 4.0H, Basophils (%) (Auto) 1.4, Sodium Level [Pending], Potassium Level [Pending ], Chloride Level [Pending], Carbon Dioxide Level [Pending], Blood Urea Nitrogen [Pending], Creatinine [Pending], Estimat Glomerular Filtration Rate [ Pending], Glucose Level [Pending], Calcium Level [Pending], Triglycerides Level [Pending], Cholesterol Level [Pending], LDL Cholesterol [Pending], HDL Cholesterol [Pending], Cholesterol/HDL Ratio [Pending] Height (Feet): 5 Height (Inches): 7.00 Weight (Pounds): 219 General Appearance: no apparent distress Neck: normal alignment Cardiovascular: normal rate Respiratory/Chest: lungs clear Abdomen: normal bowel sounds Edema: no edema noted Arm (L), no edema noted Arm (R), no edema noted Leg (L), no edema noted Leg (R), no edema noted Pedal (L), no edema noted Pedal (R), no edema noted Generalized Objective Current Medications Medications (Trade) Dose Ordered Sig/Elias Route PRN Reason Start Time Stop Time Status Last Admin Dose Admin Acetaminophen (Tylenol) 650 mg Q4H PRN ORAL fever 03/15/18 19:15 04/14/18 19:14 Al Hydroxide/Mg Hydroxide (Mylanta II) 30 ml Q6H PRN ORAL dyspepsia 03/15/18 19:15 04/14/18 19:14 Ceftriaxone Sodium 1 gm/ Dextrose 55 ml @ 110 mls/hr DAILY IVPB 03/16/18 12:00 03/23/18 11:59 03/16/18 12:40 Clonidine HCl (Catapres tab) 0.2 mg Q6H PRN ORAL SBP <160 03/15/18 21:15 04/14/18 21:14 03/15/18 22:19 Dextrose (Dextrose 50%) 25 ml PRN IV Hypoglycemia 03/15/18 19:30 04/14/18 19:29 Dextrose (Dextrose 50%) 50 ml PRN IV hypoglycemia 03/15/18 19:30 04/14/18 19:29 Heparin Sodium (Porcine) (Heparin 5000 units/ml) 5,000 units EVERY 12 HOURS SUBQ 03/15/18 21:00 04/14/18 20:59 03/16/18 22:28 Levothyroxine Sodium (Synthroid) 112 mcg DAILY@0630 ORAL 03/16/18 06:30 04/15/18 06:29 03/17/18 06:10 Lorazepam (Ativan 2mg/ml 1ml) 2 mg Q1H PRN IV seizures 03/15/18 19:15 03/22/18 19:14 Morphine Sulfate (Morphine Sulfate) 1 mg Q4H PRN IVP For Pain 03/15/18 19:15 03/22/18 19:14 Ondansetron HCl (Zofran) 4 mg Q6H PRN IVP Nausea & Vomiting 03/15/18 19:15 04/14/18 19:14 Polyethylene Glycol (Miralax) 17 gm HSPRN PRN ORAL Constipation 03/15/18 19:15 04/14/18 19:14 Prednisone (predniSONE) 5 mg DAILY ORAL 03/16/18 09:00 04/15/18 08:59 03/16/18 08:20 Zolpidem Tartrate (Ambien) 5 mg HSPRN PRN ORAL Insomnia 03/15/18 19:15 03/22/18 19:14 Levi Gregory MD Mar 17, 2018 07:20
[2018-03-17 08:00] LABS: CHOLESTEROL 156 MG/DL (< 200); HDL CHOLESTEROL 33 MG/DL (40-60); TRIGLYCERIDES 98 MG/DL (30-150)
[2018-03-17 09:05] VITALS: BP 150/77
[2018-03-17] MEDS: cefTRIAXone 1 GM in D5W 55 ML IVPB SCH (09:23)
[2018-03-17] MEDS: Heparin 5000 units/ml inj SUBQ SCH ×2 (09:24→20:53)
--- NOTE | 2018-03-17 11:30 | Pulmonology Progress Note ---
Assessment/Plan Problems: (1) Seizure (2) Acute encephalopathy (3) Nephrolithiasis (4) Pituitary tumor (5) CVA (cerebral vascular accident) Assessment/Plan endo note appreciated awaiting EEG keep in teli b/o seizures f/u neuro recommendations dvt prophylaxis symptomatic treatment Subjective ROS Limited/Unobtainable: No Interval Events: sitting up in the chair Allergies: Coded Allergies: No Known Allergies (Unverified , 03/15/18) Objective Last 24 Hour Vital Signs Date Time Temp Pulse Resp B/P (MAP) Pulse Ox O2 Delivery O2 Flow Rate FiO2 03/17/18 10:55 Room Air 03/17/18 09:05 99.3 65 18 150/77 (101) 97 99.3 03/17/18 08:00 57 03/17/18 04:29 98.7 70 18 143/88 (106) 100 98.7 03/17/18 04:00 64 03/17/18 00:34 98.6 57 18 136/76 (96) 100 98.6 03/17/18 00:09 61 03/16/18 21:00 Room Air 03/16/18 20:00 98.6 63 18 128/82 (97) 97 98.6 03/16/18 19:02 64 03/16/18 16:00 63 03/16/18 16:00 97.5 65 16 134/86 (102) 97 97.5 03/16/18 12:00 62 03/16/18 12:00 97.7 65 16 139/83 (101) 99 97.7 Intake and Output 03/16/18 03/17/18 19:00 07:00 Intake Total 535 ml Output Total 1450 ml 1100 ml Balance -915 ml -1100 ml Intake Oral 240 ml IV Total 295 ml Output Urine Total 1450 ml 1100 ml # Voids 1 General Appearance: WD/WN, no acute distress HEENT: normocephalic, atraumatic Respiratory/Chest: chest wall non-tender, lungs clear Breasts: no masses Cardiovascular: normal peripheral pulses Abdomen: normal bowel sounds, soft, non tender Genitourinary: normal external genitalia Extremities: no clubbing Skin: no rash Neurologic/Psychiatric: vp organizational development II-XII grossly normal, no motor/sensory deficits Lymphatic: no neck adenopathy Microbiology Date/Time Source Procedure Growth Status 03/15/18 18:30 Urine,Clean Catch Urine Culture - Preliminary Gram Negative Bacillus 1 Resulted Laboratory Tests 03/16/18 18:55: Erythrocyte Sedimentation Rate 38H, Hemoglobin A1c 5.1, Vitamin B12 Level 482, Vitamin D 25-Hydroxy [Pending], 25-Hydroxy Vitamin D2 [Pending], 25-Hydroxy Vitamin D3 [Pending], Folate 5.9L, Rapid Plasma Reagin Non reactive 03/17/18 05:25: White Blood Count 10.0, Red Blood Count 4.41, Hemoglobin 9.9L, Hematocrit 32.1L , Mean Corpuscular Volume 73L, Mean Corpuscular Hemoglobin 22.5L, Mean Corpuscular Hemoglobin Concent 30.9L, Red Cell Distribution Width 11.9, Platelet Count 206, Mean Platelet Volume 8.6, Neutrophils (%) (Auto) 48.0, Lymphocytes (%) (Auto) 40.7, Monocytes (%) (Auto) 5.9, Eosinophils (%) (Auto) 4.0H, Basophils (%) (Auto) 1.4, Sodium Level 137, Potassium Level 3.6, Chloride Level 106, Carbon Dioxide Level 25, Anion Gap 7, Blood Urea Nitrogen 14, Creatinine 0.9, Estimat Glomerular Filtration Rate > 60, Glucose Level 94, Calcium Level 9.7, Triglycerides Level 98, Cholesterol Level 156, LDL Cholesterol 102H, HDL Cholesterol 33L, Cholesterol/HDL Ratio 4.7H Current Medications Medications (Trade) Dose Ordered Sig/Elias Route PRN Reason Start Time Stop Time Status Last Admin Dose Admin Acetaminophen (Tylenol) 650 mg Q4H PRN ORAL fever 03/15/18 19:15 04/14/18 19:14 Al Hydroxide/Mg Hydroxide (Mylanta II) 30 ml Q6H PRN ORAL dyspepsia 03/15/18 19:15 04/14/18 19:14 Ceftriaxone Sodium 1 gm/ Dextrose 55 ml @ 110 mls/hr DAILY IVPB 03/16/18 12:00 03/23/18 11:59 03/17/18 09:23 Clonidine HCl (Catapres tab) 0.2 mg Q6H PRN ORAL SBP <160 03/15/18 21:15 04/14/18 21:14 03/15/18 22:19 Dextrose (Dextrose 50%) 25 ml PRN IV Hypoglycemia 03/15/18 19:30 04/14/18 19:29 Dextrose (Dextrose 50%) 50 ml PRN IV hypoglycemia 03/15/18 19:30 04/14/18 19:29 Heparin Sodium (Porcine) (Heparin 5000 units/ml) 5,000 units EVERY 12 HOURS SUBQ 03/15/18 21:00 04/14/18 20:59 03/17/18 09:24 Levothyroxine Sodium (Synthroid) 112 mcg DAILY@0630 ORAL 03/16/18 06:30 04/15/18 06:29 03/17/18 06:10 Lorazepam (Ativan 2mg/ml 1ml) 2 mg Q1H PRN IV seizures 03/15/18 19:15 03/22/18 19:14 Morphine Sulfate (Morphine Sulfate) 1 mg Q4H PRN IVP For Pain 03/15/18 19:15 03/22/18 19:14 Ondansetron HCl (Zofran) 4 mg Q6H PRN IVP Nausea & Vomiting 03/15/18 19:15 04/14/18 19:14 Polyethylene Glycol (Miralax) 17 gm HSPRN PRN ORAL Constipation 03/15/18 19:15 04/14/18 19:14 Prednisone (predniSONE) 5 mg DAILY ORAL 03/16/18 09:00 04/15/18 08:59 03/17/18 09:23 Zolpidem Tartrate (Ambien) 5 mg HSPRN PRN ORAL Insomnia 03/15/18 19:15 03/22/18 19:14 Alvin Corbett MD Mar 17, 2018 11:30
[2018-03-17 12:00] VITALS: BP 148/85
--- NOTE | 2018-03-17 12:58 | General Progress Note ---
Assessment/Plan Assessment/Plan encephalopathy due to CVA - ativan prn -provided ro/st Subjective Date patient seen: Mar 17, 2018 Neurologic/Psychiatric: Reports: anxiety, depressed, emotional problems Allergies: Coded Allergies: No Known Allergies (Unverified , 03/15/18) Objective Last 24 Hour Vital Signs Date Time Temp Pulse Resp B/P (MAP) Pulse Ox O2 Delivery O2 Flow Rate FiO2 03/17/18 10:55 Room Air 03/17/18 09:05 99.3 65 18 150/77 (101) 97 99.3 03/17/18 08:00 57 03/17/18 04:29 98.7 70 18 143/88 (106) 100 98.7 03/17/18 04:00 64 03/17/18 00:34 98.6 57 18 136/76 (96) 100 98.6 03/17/18 00:09 61 03/16/18 21:00 Room Air 03/16/18 20:00 98.6 63 18 128/82 (97) 97 98.6 03/16/18 19:02 64 03/16/18 16:00 63 03/16/18 16:00 97.5 65 16 134/86 (102) 97 97.5 Intake and Output 03/16/18 03/17/18 19:00 07:00 Intake Total 535 ml Output Total 1450 ml 1100 ml Balance -915 ml -1100 ml Intake Oral 240 ml IV Total 295 ml Output Urine Total 1450 ml 1100 ml # Voids 1 Laboratory Tests 03/16/18 18:55: Erythrocyte Sedimentation Rate 38H, Hemoglobin A1c 5.1, Vitamin B12 Level 482, Vitamin D 25-Hydroxy [Pending], 25-Hydroxy Vitamin D2 [Pending], 25-Hydroxy Vitamin D3 [Pending], Folate 5.9L, Rapid Plasma Reagin Non reactive 03/17/18 05:25: White Blood Count 10.0, Red Blood Count 4.41, Hemoglobin 9.9L, Hematocrit 32.1L , Mean Corpuscular Volume 73L, Mean Corpuscular Hemoglobin 22.5L, Mean Corpuscular Hemoglobin Concent 30.9L, Red Cell Distribution Width 11.9, Platelet Count 206, Mean Platelet Volume 8.6, Neutrophils (%) (Auto) 48.0, Lymphocytes (%) (Auto) 40.7, Monocytes (%) (Auto) 5.9, Eosinophils (%) (Auto) 4.0H, Basophils (%) (Auto) 1.4, Sodium Level 137, Potassium Level 3.6, Chloride Level 106, Carbon Dioxide Level 25, Anion Gap 7, Blood Urea Nitrogen 14, Creatinine 0.9, Estimat Glomerular Filtration Rate > 60, Glucose Level 94, Calcium Level 9.7, Triglycerides Level 98, Cholesterol Level 156, LDL Cholesterol 102H, HDL Cholesterol 33L, Cholesterol/HDL Ratio 4.7H Height (Feet): 5 Height (Inches): 7.00 Weight (Pounds): 219 General Appearance: no apparent distress, alert Nelsy Sherwood MD Mar 17, 2018 12:58
--- NOTE | 2018-03-17 13:56 | Diagnostic Imaging Report ---
APPROVED REPORT CPT Code: 99100 Vascular Symptoms Syncope CAROTID (BILATERAL) - Imaging reveals no significant plaque within the right and left extracranial carotid arteries. The Doppler spectral flow analysis is within normal limits throughout the extracranial carotid arteries bilaterally. VERTEBRAL- The vertebral arteries are within normal limits.
[2018-03-17 16:02] VITALS: BP 143/87
--- NOTE | 2018-03-17 18:17 | Neurology Progress Note ---
Interim History Interim History Interim History Ms. Mcmullen feels well. She is eager to go home. She has had no further episodes of loss of consciousness. She continues to be forgetful. She continues to have cognitive dysfunction. She denies any new neurologic symptoms. Review of Systems Neuro Review of Systems Benign. Objective Physical Exam Last Vital Signs Date Time Temp Pulse Resp B/P (MAP) Pulse Ox O2 Delivery O2 Flow Rate FiO2 03/17/18 16:02 98.2 73 18 143/87 (105) 99 98.2 03/17/18 10:55 Room Air Laboratory Tests Test 03/16/18 18:55 03/17/18 05:25 Erythrocyte Sedimentation Rate 38 MM/HR (0-30) H Hemoglobin A1c 5.1 % (4.3-6.0) Vitamin B12 Level 482 PG/ML (193-986) Vitamin D 25-Hydroxy Pending 25-Hydroxy Vitamin D2 Pending 25-Hydroxy Vitamin D3 Pending Folate 5.9 NG/ML (8.6-58.9) L Rapid Plasma Reagin Non reactive (Non Reactive) White Blood Count 10.0 K/UL (4.8-10.8) Red Blood Count 4.41 M/UL (4.20-5.40) Hemoglobin 9.9 G/DL (12.0-16.0) L Hematocrit 32.1 % (37.0-47.0) L Mean Corpuscular Volume 73 FL (80-99) L Mean Corpuscular Hemoglobin 22.5 PG (27.0-31.0) L Mean Corpuscular Hemoglobin Concent 30.9 G/DL (32.0-36.0) L Red Cell Distribution Width 11.9 % (11.6-14.8) Platelet Count 206 K/UL (150-450) Mean Platelet Volume 8.6 FL (6.5-10.1) Neutrophils (%) (Auto) 48.0 % (45.0-75.0) Lymphocytes (%) (Auto) 40.7 % (20.0-45.0) Monocytes (%) (Auto) 5.9 % (1.0-10.0) Eosinophils (%) (Auto) 4.0 % (0.0-3.0) H Basophils (%) (Auto) 1.4 % (0.0-2.0) Sodium Level 137 MMOL/L (136-145) Potassium Level 3.6 MMOL/L (3.5-5.1) Chloride Level 106 MMOL/L (98-107) Carbon Dioxide Level 25 MMOL/L (21-32) Anion Gap 7 mmol/L (5-15) Blood Urea Nitrogen 14 mg/dL (7-18) Creatinine 0.9 MG/DL (0.55-1.30) Estimat Glomerular Filtration Rate > 60 mL/min (>60) Glucose Level 94 MG/DL (74-106) Calcium Level 9.7 MG/DL (8.5-10.1) Triglycerides Level 98 MG/DL (30-150) Cholesterol Level 156 MG/DL (< 200) LDL Cholesterol 102 mg/dL (<100) H HDL Cholesterol 33 MG/DL (40-60) L Cholesterol/HDL Ratio 4.7 (3.3-4.4) H Neurologic Exam Objective PHYSICAL EXAMINATION: GENERAL: She is a well-developed, well-nourished, pleasant black lady, lying in bed, in no acute distress. HEAD: Normocephalic and atraumatic. EENT: Examination benign. NECK: No neck rigidity was observed. NEUROLOGICAL EXAMINATION: MENTAL STATUS EXAMINATION: She was awake and alert. She was oriented to self, hospital, and 2018. She did not know the name of the hospital, date, or month. She was able to recall 3/3 words immediately, but could not remember any of the 3 words in 1 minute and 3 minutes. She was able to remember presidents, Trump and Obama with hints, but could not remember presidents prior to that. Her mathematical skills were impaired. Her visuospatial function was also impaired. SPEECH: She had no dysarthria. LANGUAGE: She had anomia for low and mid frequency words. CRANIAL NERVE EXAMINATION: II: The visual martinez were intact to confrontation testing. III, IV & : The external ocular movements were full and the pupils 3 mm in diameter, equal, round, regular, and reactive to light. V: She had normal facial sensations and the temporales, masseters, and pterygoids function normally. VII: She had a mild right seventh central facial paresis. VIII: She was able to hear and had no nystagmus. IX: The palate moved symmetrically on phonation. X: She had no hoarseness of voice. XI: The sternocleidomastoids and trapezii functioned normally. XII: The tongue was in the midline without any fasciculations or atrophy. MOTOR SYSTEM: The tone was normal in all four extremities. Examination of muscle mass revealed no focal wasting. Examination of power revealed G 5/5 power except for G 4+/5 power in the right finger extensors and iliopsoas. SENSORY EXAMINATION: She had intact sensations to pinprick, light touch, and graphesthesia. COORDINATION: Nasltp-[id number] and [id number]-[id number] testing were minimally clumsy bilaterally. Romberg test could not be performed. REFLEXES: Trace+ and bilaterally symmetrical at the biceps, triceps, brachioradialis, and knees, 0 at both ankles. The plantar responses were flexor bilaterally. STANCE: She stood up with support. GAIT: She walked with support with right hemiparetic and apractic gait. Impression/Recommendations Diagnostic Impression 1. Ms. Maria Elena Mcmullen is a 67-year-old, right-handed, black lady, with a prior history of pituitary adenoma, multiple episodes of loss of consciousness in the last few years that are always sudden when she is erect and not preceded or followed by any other symptoms, who was recently hospitalized at [facility] for obstructive kidney stone and acute kidney injury. She was on her way home getting out of car when she suddenly had another episode of loss of consciousness. 2. She feels well. She is eager to go home. She has had no further episodes of loss of consciousness. She continues to be forgetful. She continues to have cognitive dysfunction. She denies any new neurologic symptoms. 3. On neurological examination, at this time, she does have problems with orientation, recent and remote memory, visuospatial function, higher cognitive function, and language. She also has a mild right hemiparesis involving the face and upper and lower extremities and in addition right lower extremity apraxia. The deep tendon reflexes are globally diminished and she has right hemiparetic and apractic gait. 4. Laboratory data obtained thus far have revealed on admission her WBC count was elevated to 11,200. She was mildly anemic with a hemoglobin of 10.7 G. The chemistry panel was relatively benign, but her albumin was low at 2.9. Her TSH was low at 0.227, but her free T4 was normal at 1.19. Her urine toxicology screen was benign. Her urinalysis however revealed 1+ leukocyte esterase, too numerous to count red blood cells, and 10-15 white blood cells per high-power field. 5. Further laboratory tests have revealed a normal B12 level but a low Folate. 6. The EEG done on 03/16/18 revealed an encephalopathy of mild degree, left fronto-temporal dysfunction and bilateral fronto-temporla dysfunction. 7. An MRI scan of the brain revealed a 10 mm x 5 mm acute left frontal sorensen radiata infarct, a tiny punctate left pontine infarct, and sellar/suprasellar mass measuring 1.9 x 2.2 x 2.3 cm. In addition, sequelae of a right frontal craniotomy was also seen. She also demonstrated periventricular abnormal signal consistent with chronic small vessel disease. 8. The carotid duplex revealed patent ICAs bilaterally. 9. The patient's history, neurological examination, laboratory data, and imaging studies are most compatible with episodes of loss of consciousness, which most probably represent syncopal events or less likely ictal events. 10. The right hemiparesis is due to the left frontal infarct of an acute nature. 11. She does have an incidental small left pontine infarct, which at this point in time is asymptomatic. 12. She does have cognitive impairment - this is most probabaly due to her encephalopathy and structural brain disease. Recommendations 1. Continue present management. 2. Continue Plavix 75 mg daily for secondary stroke prophylaxis. 3. Folic acid 1 mg q day. 4. Appropriate treatment of dyslipidemia. 5. Physical and occupational therapy to rehabilitate her. 6. Check serum ammonia. Barb Cheema M.D., M.S.P.H. BARB CHEEMA Mar 17, 2018 18:17
--- NOTE | 2018-03-17 18:56 | Internal Med Progress Note ---
Subjective Date of Service: Mar 17, [address] Hendrix Attending Physician Rogelio Sanchez MD Current Medications Medications (Trade) Dose Ordered Sig/Elias Route PRN Reason Start Time Stop Time Status Last Admin Dose Admin Acetaminophen (Tylenol) 650 mg Q4H PRN ORAL fever 03/15/18 19:15 04/14/18 19:14 Al Hydroxide/Mg Hydroxide (Mylanta II) 30 ml Q6H PRN ORAL dyspepsia 03/15/18 19:15 04/14/18 19:14 Ceftriaxone Sodium 1 gm/ Dextrose 55 ml @ 110 mls/hr DAILY IVPB 03/16/18 12:00 03/23/18 11:59 03/17/18 09:23 Clonidine HCl (Catapres tab) 0.2 mg Q6H PRN ORAL SBP <160 03/15/18 21:15 04/14/18 21:14 03/15/18 22:19 Dextrose (Dextrose 50%) 25 ml PRN IV Hypoglycemia 03/15/18 19:30 04/14/18 19:29 Dextrose (Dextrose 50%) 50 ml PRN IV hypoglycemia 03/15/18 19:30 04/14/18 19:29 Folic Acid (Folate) 1 mg DAILY ORAL 03/17/18 18:30 04/16/18 18:29 03/17/18 18:50 Heparin Sodium (Porcine) (Heparin 5000 units/ml) 5,000 units EVERY 12 HOURS SUBQ 03/15/18 21:00 04/14/18 20:59 03/17/18 09:24 Levothyroxine Sodium (Synthroid) 112 mcg DAILY@0630 ORAL 03/16/18 06:30 04/15/18 06:29 03/17/18 06:10 Lorazepam (Ativan 2mg/ml 1ml) 2 mg Q1H PRN IV seizures 03/15/18 19:15 03/22/18 19:14 Morphine Sulfate (Morphine Sulfate) 1 mg Q4H PRN IVP For Pain 03/15/18 19:15 03/22/18 19:14 Ondansetron HCl (Zofran) 4 mg Q6H PRN IVP Nausea & Vomiting 03/15/18 19:15 04/14/18 19:14 Polyethylene Glycol (Miralax) 17 gm HSPRN PRN ORAL Constipation 03/15/18 19:15 04/14/18 19:14 Prednisone (predniSONE) 5 mg DAILY ORAL 03/16/18 09:00 04/15/18 08:59 03/17/18 09:23 Zolpidem Tartrate (Ambien) 5 mg HSPRN PRN ORAL Insomnia 03/15/18 19:15 03/22/18 19:14 Allergies: Coded Allergies: No Known Allergies (Unverified , 03/15/18) ROS Limited/Unobtainable: No Constitutional: Reports: no symptoms HEENT: Reports: no symptoms Cardiovascular: Reports: no symptoms Respiratory: Reports: no symptoms Gastrointestinal/Abdominal: Reports: no symptoms Genitourinary: Reports: no symptoms Neurologic/Psychiatric: Reports: no symptoms Subjective 67 YO F admitted with altered mental status. Now acute CVA and possible seizure. Await EEG. Cover for Int Rashaad-Dr Sanchez. Objective Last Vital Signs Date Time Temp Pulse Resp B/P (MAP) Pulse Ox O2 Delivery O2 Flow Rate FiO2 03/17/18 16:02 98.2 73 18 143/87 (105) 99 98.2 03/17/18 10:55 Room Air General Appearance: WD/WN, no apparent distress, alert EENT: PERRL/EOMI, normal ENT inspection, TMs normal Neck: non-tender, normal alignment, supple, normal inspection Cardiovascular: normal peripheral pulses, normal rate, regular rhythm, no gallop/murmur, no JVD Respiratory/Chest: chest wall non-tender, lungs clear, normal breath sounds, no respiratory distress, no accessory muscle use Abdomen: normal bowel sounds, non tender, soft, no organomegaly, no mass Extremities: normal range of motion, non-tender Neurologic: circular distributor II-XII grossly normal, no motor/sensory deficits Skin: normal pigmentation, warm/dry Laboratory Tests Test 03/16/18 18:55 03/17/18 05:25 Erythrocyte Sedimentation Rate 38 MM/HR (0-30) H Hemoglobin A1c 5.1 % (4.3-6.0) Vitamin B12 Level 482 PG/ML (193-986) Vitamin D 25-Hydroxy Pending 25-Hydroxy Vitamin D2 Pending 25-Hydroxy Vitamin D3 Pending Folate 5.9 NG/ML (8.6-58.9) L Rapid Plasma Reagin Non reactive (Non Reactive) White Blood Count 10.0 K/UL (4.8-10.8) Red Blood Count 4.41 M/UL (4.20-5.40) Hemoglobin 9.9 G/DL (12.0-16.0) L Hematocrit 32.1 % (37.0-47.0) L Mean Corpuscular Volume 73 FL (80-99) L Mean Corpuscular Hemoglobin 22.5 PG (27.0-31.0) L Mean Corpuscular Hemoglobin Concent 30.9 G/DL (32.0-36.0) L Red Cell Distribution Width 11.9 % (11.6-14.8) Platelet Count 206 K/UL (150-450) Mean Platelet Volume 8.6 FL (6.5-10.1) Neutrophils (%) (Auto) 48.0 % (45.0-75.0) Lymphocytes (%) (Auto) 40.7 % (20.0-45.0) Monocytes (%) (Auto) 5.9 % (1.0-10.0) Eosinophils (%) (Auto) 4.0 % (0.0-3.0) H Basophils (%) (Auto) 1.4 % (0.0-2.0) Sodium Level 137 MMOL/L (136-145) Potassium Level 3.6 MMOL/L (3.5-5.1) Chloride Level 106 MMOL/L (98-107) Carbon Dioxide Level 25 MMOL/L (21-32) Anion Gap 7 mmol/L (5-15) Blood Urea Nitrogen 14 mg/dL (7-18) Creatinine 0.9 MG/DL (0.55-1.30) Estimat Glomerular Filtration Rate > 60 mL/min (>60) Glucose Level 94 MG/DL (74-106) Calcium Level 9.7 MG/DL (8.5-10.1) Triglycerides Level 98 MG/DL (30-150) Cholesterol Level 156 MG/DL (< 200) LDL Cholesterol 102 mg/dL (<100) H HDL Cholesterol 33 MG/DL (40-60) L Cholesterol/HDL Ratio 4.7 (3.3-4.4) H Microbiology Date/Time Source Procedure Growth Status 03/15/18 18:30 Urine,Clean Catch Urine Culture - Final Escherichia Coli Complete Intake and Output 03/16/18 03/17/18 19:00 07:00 Intake Total 535 ml Output Total 1450 ml 1100 ml Balance -915 ml -1100 ml Intake Oral 240 ml IV Total 295 ml Output Urine Total 1450 ml 1100 ml # Voids 1 Assessment/Plan Problem List: (1) UTI (urinary tract infection) Assessment & Plan: E. Coli. Continue ceftriaxone (2) Renal calculi (3) Hypothyroidism Assessment & Plan: Continue levoxyl. (4) Pituitary adenoma (5) CVA (cerebral vascular accident) Assessment & Plan: Acute left frontal carona radiata and left brainstem. See neurology note. (6) Seizure Assessment & Plan: See neurology note. Await EEG Status: not improved Rd Hendrix MD Mar 17, 2018 18:56
--- NOTE | 2018-03-17 19:30 | Electroencephalogram ---
DATE OF PROCEDURE: 03/16/2018 REQUESTING PHYSICIAN: Rd Hendrix M.D. HISTORY: This EEG was performed on a 67-year-old lady with a history of hypertension and a pituitary adenoma that was surgically treated quite a few years ago. She has had multiple episodes of loss of consciousness lasting for a few seconds to a few minutes over the last few years. She also was noted to have a recent left frontal infarct and a tiny left pontine infarct. The purpose of this EEG was to evaluate the patient for the degree and type of cerebral dysfunction and to exclude ongoing ictal or interictal phenomena. TECHNICAL NOTE: This EEG was performed on a [employer] with electrodes placed on the scalp according to the International 10-20 system. [id number] and lwsdl-on-mgy montages were used. The EEG was technically satisfactory and was performed in the awake and drowsy states. OBSERVATIONS: In the best awake state, the background activity consisted of 7-7.5 Hz theta activity with some intermixed alpha frequencies. In addition, interspersed triphasic waveforms were also seen. Drowsiness was characterized by slowing of the background in the 5-6 Hz theta range with a larger amount of triphasic waveforms. In addition, left frontotemporal polymorphic delta activity was noted quite frequently and at times bilateral frontotemporal polymorphic delta activity was also noted. No epileptiform discharges were seen. IMPRESSION: This is an abnormal EEG characterized by: 1. Slowing of the background predominantly in the 7-7.5 Hz theta range with some intermixed alpha frequencies in the awake state. 2. The presence of triphasic waveforms, which increased during drowsiness. 3. The presence of left frontotemporal polymorphic delta activity. 4. The presence of bilateral frontotemporal polymorphic delta activity. COMMENT: The study is consistent with: 1. An encephalopathy of a mild degree. 2. Left frontotemporal dysfunction. 3. The bilateral frontotemporal polymorphic delta activity may either be indicative of focal dysfunction in those regions or may be part of the encephalopathy. Dev Amin M.D., M.S.P.H. DR: MEGHAN JOB#: [id number] [facility] HOSPITALMadhav
[2018-03-17 20:00] VITALS: BP 164/87
[2018-03-17] MEDS: cloNIDine 0.2mg Tab ORAL PRN (21:02)
--- NOTE | 2018-03-17 23:37 | Cardiology Report ---
APPROVED REPORT EKG Measurement Heart [id number] Normal sinus rhythm with sinus arrhythmia Abnormal ECG
[2018-03-18] VITALS: BP 134/80
[2018-03-18 04:00] VITALS: BP 110/65
[2018-03-18 06:41] LABS: BASOPHILS % (AUTO) 1.2 % (0.0-2.0); EOSINOPHILS % (AUTO) 4.6 % (0.0-3.0); HEMATOCRIT 32.5 % (37.0-47.0); HEMOGLOBIN 10.2 G/DL (12.0-16.0); LYMPHOCYTES % (AUTO) 41.8 % (20.0-45.0); MEAN CORPUSCULAR VOLUME 73 FL (80-99); MONOCYTES % (AUTO) 5.8 % (1.0-10.0); NEUTROPHILS % (AUTO) 46.6 % (45.0-75.0); PLATELET COUNT 214 K/UL (150-450); RED BLOOD COUNT 4.48 M/UL (4.20-5.40); RED CELL DISTRIBUTION WIDTH 11.6 % (11.6-14.8); WHITE BLOOD COUNT 10.6 K/UL (4.8-10.8)
[2018-03-18 06:57] LABS: ANION GAP 8 mmol/L (5-15); BLOOD UREA NITROGEN 15 mg/dL (7-18); CALCIUM 9.3 MG/DL (8.5-10.1); CARBON DIOXIDE 24 MMOL/L (21-32); CHLORIDE 105 MMOL/L (98-107); CREATININE 0.9 MG/DL (0.55-1.30); POTASSIUM 3.5 MMOL/L (3.5-5.1); SODIUM 136 MMOL/L (136-145)
--- NOTE | 2018-03-18 07:31 | General Progress Note ---
Assessment/Plan Problem List: (1) Secondary adrenal insufficiency ICD Codes: E27.49 - Other adrenocortical insufficiency SNOMED: 96047165 (2) Secondary hypothyroidism ICD Codes: E03.8 - Other specified hypothyroidism SNOMED: 77770580 (3) Nephrolithiasis ICD Codes: N20.0 - Calculus of kidney SNOMED: 60428318 (4) Pituitary tumor ICD Codes: D49.7 - Neoplasm of unspecified behavior of endocrine glands and other parts of nervous system SNOMED: 315263148 (5) Acute encephalopathy ICD Codes: G93.40 - Encephalopathy, unspecified SNOMED: 32883002, 624977165 (6) CVA (cerebral vascular accident) ICD Codes: I63.9 - Cerebral infarction, unspecified SNOMED: 749530616 Assessment/Plan hypothyroidism is adequately replaced TSH measurement is useless since the etiology is central free T4 is at target => continue Levothyroxine 112 mcg daily and do NOT change adrenal insufficiency is covered by Prednisone 5 mg daily => continue same she will follow with endo at [place] Subjective ROS Limited/Unobtainable: Yes Allergies: Coded Allergies: No Known Allergies (Unverified , 03/15/18) Subjective events noted Objective Last 24 Hour Vital Signs Date Time Temp Pulse Resp B/P (MAP) Pulse Ox O2 Delivery O2 Flow Rate FiO2 03/18/18 04:00 65 03/18/18 04:00 99.7 67 20 110/65 (80) 96 99.7 03/18/18 00:00 73 03/18/18 00:00 99.1 72 18 134/80 (98) 96 99.1 03/17/18 22:02 98.6 03/17/18 21:03 100.0 03/17/18 21:02 164/87 03/17/18 21:00 Room Air 03/17/18 20:00 100.0 68 20 164/87 (112) 96 100.0 03/17/18 20:00 74 03/17/18 16:02 98.2 73 18 143/87 (105) 99 98.2 03/17/18 16:00 76 03/17/18 12:00 98.1 67 18 148/85 (106) 99 98.1 03/17/18 12:00 62 03/17/18 10:55 Room Air 03/17/18 09:05 99.3 65 18 150/77 (101) 97 99.3 03/17/18 08:00 57 Intake and Output 03/17/18 03/18/18 19:00 07:00 Intake Total 415 ml 120 ml Output Total 1100 ml 500 ml Balance -685 ml -380 ml Intake Oral 360 ml 120 ml IV Total 55 ml Output Urine Total 1100 ml 500 ml Laboratory Tests 03/17/18 19:45: Ammonia 26 03/18/18 05:35: White Blood Count 10.6, Red Blood Count 4.48, Hemoglobin 10.2L, Hematocrit 32.5L , Mean Corpuscular Volume 73L, Mean Corpuscular Hemoglobin 22.8L, Mean Corpuscular Hemoglobin Concent 31.4L, Red Cell Distribution Width 11.6, Platelet Count 214, Mean Platelet Volume 9.2, Neutrophils (%) (Auto) 46.6, Lymphocytes (%) (Auto) 41.8, Monocytes (%) (Auto) 5.8, Eosinophils (%) (Auto) 4.6H, Basophils (%) (Auto) 1.2, Sodium Level 136, Potassium Level 3.5, Chloride Level 105, Carbon Dioxide Level 24, Anion Gap 8, Blood Urea Nitrogen 15, Creatinine 0.9, Estimat Glomerular Filtration Rate > 60, Glucose Level 96, Calcium Level 9.3 Height (Feet): 5 Height (Inches): 7.00 Weight (Pounds): 219 General Appearance: no apparent distress Neck: normal alignment Cardiovascular: normal rate Respiratory/Chest: normal breath sounds Objective Current Medications Medications (Trade) Dose Ordered Sig/Elias Route PRN Reason Start Time Stop Time Status Last Admin Dose Admin Acetaminophen (Tylenol) 650 mg Q4H PRN ORAL fever 03/15/18 19:15 04/14/18 19:14 03/17/18 21:03 Al Hydroxide/Mg Hydroxide (Mylanta II) 30 ml Q6H PRN ORAL dyspepsia 03/15/18 19:15 04/14/18 19:14 Ceftriaxone Sodium 1 gm/ Dextrose 55 ml @ 110 mls/hr DAILY IVPB 03/16/18 12:00 03/23/18 11:59 03/17/18 09:23 Clonidine HCl (Catapres tab) 0.2 mg Q6H PRN ORAL SBP <160 03/15/18 21:15 04/14/18 21:14 03/17/18 21:02 Dextrose (Dextrose 50%) 25 ml PRN IV Hypoglycemia 03/15/18 19:30 04/14/18 19:29 Dextrose (Dextrose 50%) 50 ml PRN IV hypoglycemia 03/15/18 19:30 04/14/18 19:29 Folic Acid (Folate) 1 mg DAILY ORAL 03/17/18 18:30 04/16/18 18:29 03/17/18 18:50 Heparin Sodium (Porcine) (Heparin 5000 units/ml) 5,000 units EVERY 12 HOURS SUBQ 03/15/18 21:00 04/14/18 20:59 03/17/18 20:53 Levothyroxine Sodium (Synthroid) 112 mcg DAILY@0630 ORAL 03/16/18 06:30 04/15/18 06:29 03/18/18 05:55 Lorazepam (Ativan 2mg/ml 1ml) 2 mg Q1H PRN IV seizures 03/15/18 19:15 03/22/18 19:14 Morphine Sulfate (Morphine Sulfate) 1 mg Q4H PRN IVP For Pain 03/15/18 19:15 03/22/18 19:14 Ondansetron HCl (Zofran) 4 mg Q6H PRN IVP Nausea & Vomiting 03/15/18 19:15 04/14/18 19:14 Polyethylene Glycol (Miralax) 17 gm HSPRN PRN ORAL Constipation 03/15/18 19:15 04/14/18 19:14 Prednisone (predniSONE) 5 mg DAILY ORAL 03/16/18 09:00 04/15/18 08:59 03/17/18 09:23 Zolpidem Tartrate (Ambien) 5 mg HSPRN PRN ORAL Insomnia 03/15/18 19:15 03/22/18 19:14 Levi Gregory MD Mar 18, 2018 07:31
[2018-03-18 08:00] VITALS: BP 128/74
[2018-03-18] MEDS: cefTRIAXone 1 GM in D5W 55 ML IVPB SCH (08:24)
[2018-03-18] MEDS: Heparin 5000 units/ml inj SUBQ SCH (08:25)
--- NOTE | 2018-03-18 11:11 | Pulmonology Progress Note ---
Assessment/Plan Problems: (1) Seizure (2) Acute encephalopathy (3) Nephrolithiasis (4) Pituitary tumor (5) CVA (cerebral vascular accident) Assessment/Plan endo note appreciated awaiting EEG keep in teli b/o seizures f/u neuro recommendations dvt prophylaxis symptomatic treatment dc planning Subjective Interval Events: doing better Allergies: Coded Allergies: No Known Allergies (Unverified , 03/15/18) Objective Last 24 Hour Vital Signs Date Time Temp Pulse Resp B/P (MAP) Pulse Ox O2 Delivery O2 Flow Rate FiO2 03/18/18 08:00 97.3 62 18 128/74 (92) 95 97.3 03/18/18 08:00 64 03/18/18 04:00 65 03/18/18 04:00 99.7 67 20 110/65 (80) 96 99.7 03/18/18 00:00 73 03/18/18 00:00 99.1 72 18 134/80 (98) 96 99.1 03/17/18 22:02 98.6 03/17/18 21:03 100.0 03/17/18 21:02 164/87 03/17/18 21:00 Room Air 03/17/18 20:00 100.0 68 20 164/87 (112) 96 100.0 03/17/18 20:00 74 03/17/18 16:02 98.2 73 18 143/87 (105) 99 98.2 03/17/18 16:00 76 03/17/18 12:00 98.1 67 18 148/85 (106) 99 98.1 03/17/18 12:00 62 Intake and Output 03/17/18 03/18/18 19:00 07:00 Intake Total 415 ml 120 ml Output Total 1100 ml 500 ml Balance -685 ml -380 ml Intake Oral 360 ml 120 ml IV Total 55 ml Output Urine Total 1100 ml 500 ml General Appearance: WD/WN HEENT: normocephalic, atraumatic Respiratory/Chest: chest wall non-tender, lungs clear Breasts: no masses Cardiovascular: normal peripheral pulses, normal rate, regular rhythm Abdomen: normal bowel sounds, soft, non tender Genitourinary: normal external genitalia Extremities: no clubbing Skin: no lesions, no ulcers Neurologic/Psychiatric: no motor/sensory deficits Microbiology Date/Time Source Procedure Growth Status 03/15/18 18:30 Nasal Nares MRSA Culture - Final NO METHICILLIN RESISTANT STAPH AUREUS... Complete 03/15/18 18:30 Urine,Clean Catch Urine Culture - Final Escherichia Coli Complete 03/15/18 18:30 Rectum VRE Culture - Final NO VANCOMYCIN RESISTANT ENTEROCOCCUS ... Complete Laboratory Tests 03/17/18 19:45: Ammonia 26 03/18/18 05:35: White Blood Count 10.6, Red Blood Count 4.48, Hemoglobin 10.2L, Hematocrit 32.5L , Mean Corpuscular Volume 73L, Mean Corpuscular Hemoglobin 22.8L, Mean Corpuscular Hemoglobin Concent 31.4L, Red Cell Distribution Width 11.6, Platelet Count 214, Mean Platelet Volume 9.2, Neutrophils (%) (Auto) 46.6, Lymphocytes (%) (Auto) 41.8, Monocytes (%) (Auto) 5.8, Eosinophils (%) (Auto) 4.6H, Basophils (%) (Auto) 1.2, Sodium Level 136, Potassium Level 3.5, Chloride Level 105, Carbon Dioxide Level 24, Anion Gap 8, Blood Urea Nitrogen 15, Creatinine 0.9, Estimat Glomerular Filtration Rate > 60, Glucose Level 96, Calcium Level 9.3 Current Medications Medications (Trade) Dose Ordered Sig/Elias Route PRN Reason Start Time Stop Time Status Last Admin Dose Admin Acetaminophen (Tylenol) 650 mg Q4H PRN ORAL fever 03/15/18 19:15 04/14/18 19:14 03/17/18 21:03 Al Hydroxide/Mg Hydroxide (Mylanta II) 30 ml Q6H PRN ORAL dyspepsia 03/15/18 19:15 04/14/18 19:14 Ceftriaxone Sodium 1 gm/ Dextrose 55 ml @ 110 mls/hr DAILY IVPB 03/16/18 12:00 03/23/18 11:59 03/18/18 08:24 Clonidine HCl (Catapres tab) 0.2 mg Q6H PRN ORAL SBP <160 03/15/18 21:15 04/14/18 21:14 03/17/18 21:02 Dextrose (Dextrose 50%) 25 ml PRN IV Hypoglycemia 03/15/18 19:30 04/14/18 19:29 Dextrose (Dextrose 50%) 50 ml PRN IV hypoglycemia 03/15/18 19:30 04/14/18 19:29 Folic Acid (Folate) 1 mg DAILY ORAL 03/17/18 18:30 04/16/18 18:29 03/18/18 08:24 Heparin Sodium (Porcine) (Heparin 5000 units/ml) 5,000 units EVERY 12 HOURS SUBQ 03/15/18 21:00 04/14/18 20:59 03/18/18 08:25 Levothyroxine Sodium (Synthroid) 112 mcg DAILY@0630 ORAL 03/16/18 06:30 04/15/18 06:29 03/18/18 05:55 Lorazepam (Ativan 2mg/ml 1ml) 2 mg Q1H PRN IV seizures 03/15/18 19:15 03/22/18 19:14 Morphine Sulfate (Morphine Sulfate) 1 mg Q4H PRN IVP For Pain 03/15/18 19:15 03/22/18 19:14 Ondansetron HCl (Zofran) 4 mg Q6H PRN IVP Nausea & Vomiting 03/15/18 19:15 04/14/18 19:14 Polyethylene Glycol (Miralax) 17 gm HSPRN PRN ORAL Constipation 03/15/18 19:15 04/14/18 19:14 Prednisone (predniSONE) 5 mg DAILY ORAL 03/16/18 09:00 04/15/18 08:59 03/18/18 08:25 Zolpidem Tartrate (Ambien) 5 mg HSPRN PRN ORAL Insomnia 03/15/18 19:15 03/22/18 19:14 Alvin Corbett MD Mar 18, 2018 11:11
[2018-03-18] MEDS ORDERED: SYNTHROID112 MCG ORAL (11:14)
[2018-03-18] MEDS ORDERED: PLAVIX75 MG ORAL (11:14)
[2018-03-18] MEDS ORDERED: PREDNISONE5 MG ORAL (11:14)
[2018-03-18 12:00] VITALS: BP 110/68
--- NOTE | 2018-03-18 14:27 | Neurology Progress Note ---
Interim History Interim History Interim History Ms. Mcmullen feels better. She has had no further episodes of loss of consciousness. She continues to be forgetful but less so. She continues to have cognitive dysfunction. Her strength feels about the same. She is able to walk better. She denies any new neurologic symptoms. She is eager to go home. Review of Systems Neuro Review of Systems Benign. Objective Physical Exam Last Vital Signs Date Time Temp Pulse Resp B/P (MAP) Pulse Ox O2 Delivery O2 Flow Rate FiO2 03/18/18 12:00 97.7 62 18 110/68 (82) 96 97.7 03/18/18 09:00 Room Air Laboratory Tests Test 03/17/18 19:45 03/18/18 05:35 Ammonia 26 umol/L (11-32) White Blood Count 10.6 K/UL (4.8-10.8) Red Blood Count 4.48 M/UL (4.20-5.40) Hemoglobin 10.2 G/DL (12.0-16.0) L Hematocrit 32.5 % (37.0-47.0) L Mean Corpuscular Volume 73 FL (80-99) L Mean Corpuscular Hemoglobin 22.8 PG (27.0-31.0) L Mean Corpuscular Hemoglobin Concent 31.4 G/DL (32.0-36.0) L Red Cell Distribution Width 11.6 % (11.6-14.8) Platelet Count 214 K/UL (150-450) Mean Platelet Volume 9.2 FL (6.5-10.1) Neutrophils (%) (Auto) 46.6 % (45.0-75.0) Lymphocytes (%) (Auto) 41.8 % (20.0-45.0) Monocytes (%) (Auto) 5.8 % (1.0-10.0) Eosinophils (%) (Auto) 4.6 % (0.0-3.0) H Basophils (%) (Auto) 1.2 % (0.0-2.0) Sodium Level 136 MMOL/L (136-145) Potassium Level 3.5 MMOL/L (3.5-5.1) Chloride Level 105 MMOL/L (98-107) Carbon Dioxide Level 24 MMOL/L (21-32) Anion Gap 8 mmol/L (5-15) Blood Urea Nitrogen 15 mg/dL (7-18) Creatinine 0.9 MG/DL (0.55-1.30) Estimat Glomerular Filtration Rate > 60 mL/min (>60) Glucose Level 96 MG/DL (74-106) Calcium Level 9.3 MG/DL (8.5-10.1) Neurologic Exam Objective PHYSICAL EXAMINATION: GENERAL: She is a well-developed, well-nourished, pleasant black lady, sitting up in a chair, in no acute distress. HEAD: Normocephalic and atraumatic. EENT: Examination benign. NECK: No neck rigidity was observed. NEUROLOGICAL EXAMINATION: MENTAL STATUS EXAMINATION: She was awake and alert. She was oriented to self, hospital, and February 2018. She did not know the name of the hospital or exact date. She was able to recall 3/3 words immediately, but could only remember 2/3 words in 1 minute and 3 minutes. She was able to remember presidents, Trump and Obama only, but could not remember presidents prior to that. Her mathematical skills were impaired. Her visuospatial function was also impaired. SPEECH: She had no dysarthria. LANGUAGE: She had anomia for low and mid frequency words. CRANIAL NERVE EXAMINATION: II: The visual martinez were intact to confrontation testing. III, IV & : The external ocular movements were full and the pupils 3 mm in diameter, equal, round, regular, and reactive to light. V: She had normal facial sensations and the temporales, masseters, and pterygoids function normally. VII: She had a mild right seventh central facial paresis. VIII: She was able to hear and had no nystagmus. IX: The palate moved symmetrically on phonation. X: She had no hoarseness of voice. XI: The sternocleidomastoids and trapezii functioned normally. XII: The tongue was in the midline without any fasciculations or atrophy. MOTOR SYSTEM: The tone was normal in all four extremities. Examination of muscle mass revealed no focal wasting. Examination of power revealed G 5/5 power except for G 4+/5 power in the right finger extensors and iliopsoas. SENSORY EXAMINATION: She had intact sensations to pinprick, light touch, and graphesthesia. COORDINATION: Wxesrn-sp-cnpt and gocm-ww-werb testing were minimally clumsy bilaterally. Romberg test could not be performed. REFLEXES: Trace+ and bilaterally symmetrical at the biceps, triceps, brachioradialis, and knees, 0 at both ankles. The plantar responses were flexor bilaterally. STANCE: She stood up with support. GAIT: She walked with support with right hemiparetic and right apractic gait. Impression/Recommendations Diagnostic Impression 1. Ms. Maria Elena Mcmullen is a 67-year-old, right-handed, black lady, with a prior history of pituitary adenoma, multiple episodes of loss of consciousness in the last few years that are always sudden when she is erect and not preceded or followed by any other symptoms, who was recently hospitalized at [facility] for obstructive kidney stone and acute kidney injury. She was on her way home getting out of car when she suddenly had another episode of loss of consciousness. 2. She feels better. She has had no further episodes of loss of consciousness. She continues to be forgetful but less so. She continues to have cognitive dysfunction. Her strength feels about the same. She is able to walk better. She denies any new neurologic symptoms. She is eager to go home. 3. On neurological examination, at this time, she does have problems with orientation, recent and remote memory, visuospatial function, higher cognitive function, and language. She also has a mild right hemiparesis involving the face and upper and lower extremities and in addition right lower extremity apraxia. The deep tendon reflexes are globally diminished and she has right hemiparetic and apractic gait. 4. Laboratory data obtained thus far have revealed on admission her WBC count was elevated to 11,200. She was mildly anemic with a hemoglobin of 10.7 G. The chemistry panel was relatively benign, but her albumin was low at 2.9. Her TSH was low at 0.227, but her free T4 was normal at 1.19. Her urine toxicology screen was benign. Her urinalysis however revealed 1+ leukocyte esterase, too numerous to count red blood cells, and 10-15 white blood cells per high-power field. 5. Further laboratory tests have revealed a normal B12 level but a low Folate. Her serum ammonia is normal. 6. The EEG done on 03/16/18 revealed an encephalopathy of mild degree, left fronto-temporal dysfunction and bilateral fronto-temporla dysfunction. 7. An MRI scan of the brain revealed a 10 mm x 5 mm acute left frontal sorensen radiata infarct, a tiny punctate left pontine infarct, and sellar/suprasellar mass measuring 1.9 x 2.2 x 2.3 cm. In addition, sequelae of a right frontal craniotomy was also seen. She also demonstrated periventricular abnormal signal consistent with chronic small vessel disease. 8. The carotid duplex revealed patent ICAs bilaterally. 9. The patient's history, neurological examination, laboratory data, and imaging studies are most compatible with episodes of loss of consciousness, which most probably represent syncopal events or less likely ictal events. 10. The right hemiparesis is due to the left frontal infarct of an acute nature. 11. She does have an incidental small left pontine infarct, which at this point in time is asymptomatic. 12. She does have cognitive impairment - this is most probably due to her encephalopathy and structural brain disease. Recommendations 1. Continue present management. 2. Plavix 75 mg daily for secondary stroke prophylaxis. 3. Folic acid 1 mg q day. 4. Appropriate treatment of dyslipidemia. 5. Physical and occupational therapy to rehabilitate her. Barb Cheema M.D., M.S.P.Fracisco. BARB CHEEMA Mar 18, 2018 14:27
[2018-03-18] MEDS ORDERED: D5NS 1000ml IV ONE (14:31)
[2018-03-18] MEDS ORDERED: Tubing IV Secondary IV ONE (14:31)
--- NOTE | 2018-03-18 15:22 | Discharge Summary ---
Discharge Summary Hospital Course Date of Admission Mar 15, 2018 at 16:59 Date of Discharge Admitting Diagnosis SEIZURES HPI Maria Elena Mcmullen is a 67 year old female who was admitted on Mar 15, 2018 at 16 :59 for Seizures Hospital Course Last 24 Hour Vital Signs Date Time Temp Pulse Resp B/P (MAP) Pulse Ox O2 Delivery O2 Flow Rate FiO2 03/18/18 12:00 97.7 62 18 110/68 (82) 96 97.7 03/18/18 09:00 Room Air 03/18/18 08:00 97.3 62 18 128/74 (92) 95 97.3 03/18/18 08:00 64 03/18/18 04:00 65 03/18/18 04:00 99.7 67 20 110/65 (80) 96 99.7 03/18/18 00:00 73 03/18/18 00:00 99.1 72 18 134/80 (98) 96 99.1 03/17/18 22:02 98.6 03/17/18 21:03 100.0 03/17/18 21:02 164/87 03/17/18 21:00 Room Air 03/17/18 20:00 100.0 68 20 164/87 (112) 96 100.0 03/17/18 20:00 74 03/17/18 16:02 98.2 73 18 143/87 (105) 99 98.2 03/17/18 16:00 76 Active Scripts Medications Dose Route/Sig Max Daily Dose Days Date Category Dose Instructions Plavix* (Clopidogrel Bisulfate) 75 Mg Tablet 75 Mg ORAL DAILY 03/18/18 Rx Prednisone 5 Mg/5 Ml Solution 5 Mg ORAL DAILY 30 03/18/18 Rx Synthroid* (Levothyroxine Sodium) 112 Mcg Tablet 112 Mcg ORAL DAILY@0630 30 03/18/18 Rx Take in the morning on an empty stomach, at least 30 minutes before food. discharge [facility] dictated # [id number] Discharge Discharge Disposition Patient was discharged to Home (01) Rogelio Sanchez MD Mar 18, 2018 15:22
--- NOTE | 2018-03-18 19:15 | Discharge Summary ---
DATE OF ADMISSION: 03/15/2018 DATE OF DISCHARGE: 03/18/2018 HOSPITAL COURSE: This is a 67-year-old female with past medical history significant for pituitary microadenoma, history of hypothyroidism, status post craniotomy secondary to pituitary adenoma, who has presented to the hospital complaining about passing out. The patient was recently admitted to [facility] due to the left renal calculi, was discharged on 03/15/2018 with the Frederick catheter and now presented to the hospital complaining about syncopal episode. The patient was admitted to the hospital with syncope and possible acute coronary syndrome. Throughout the hospital course, the patient was followed by Dr. Dev Amin from Neurology and the patient had a EEG done on 03/16/2018 that revealed encephalopathy of the mild degree, left frontal temporal dysfunction, and a bilateral frontotemporal dysfunction. MRI of the brain shows that the patient has a 10 mm x 5 mm acute left frontal cortical radiata infarction with tiny punctuated left pontine infarction with sellar and paraventricular abnormality signal consisted with chronic small vessel disease. The patient showed that the carotid duplex revealed a patent ICA bilaterally and subsequently, the patient was treated for the small right hemiparesis with left frontal infarction in acute nature. Throughout the hospital course, the patient's status improved and subsequently was discharged home today to be continued on Plavix 75 mg daily for stroke. FINAL DIAGNOSES: 1. Acute left frontal infarction. 2. Secondary adrenal insufficiency with the adrenocortical insufficiency. 3. Secondary hypothyroidism. 4. Nephrolithiasis. 5. Pituitary tumor. 6. Acute encephalopathy. MEDICATION ON DISCHARGE: Continue discharge medication list. ACTIVITY: As tolerated. DIET: Regular diet. DISCHARGE INSTRUCTIONS: The patient was advised to follow up with Neurology, Dr. Dev Amin within one week. Throughout the hospital course, the patient was followed by Dr. Levi Gregory from Endocrine, Dr. Sherwood from Psychiatry, Dr. Dev Amin from Neurology, and Dr. Alvin Corbett from Pulmonary Critical Care. Rogelio Sanchez M.D. DR: MART JOB#: [id number] CC:
--- NOTE | 2018-03-19 23:04 | General Progress Note ---
Assessment/Plan Status: stable, progressing Assessment/Plan encephalopathy due to CVA - ativan prn -provided ro/st Subjective Date patient seen: Mar 18, 2018 Neurologic/Psychiatric: Reports: anxiety, depressed, emotional problems Allergies: Coded Allergies: No Known Allergies (Unverified , 03/15/18) Objective Height (Feet): 5 Height (Inches): 7.00 Weight (Pounds): 219 General Appearance: no apparent distress, alert Nelsy Sherwood MD Mar 19, 2018 23:04
== END 2018-03-18 14:32 | disposition home or self-care (01) | DRG 64 ==
LOC: EDBD 14:29 → EMR 15:00 → 2E 16:59 → EDBEDREQ 17:49
PROC: 4A00X4Z Measurement of Central Nervous Electrical Activity, External Approach (ICD-10-PCS; principal; 2018-03-16)
DX: I63.9 Cerebral infarction, unspecified (principal); G93.40 Encephalopathy, unspecified; N39.0 Urinary tract infection, site not specified; G81.91 Hemiplegia, unspecified affecting right dominant side; E27.40 Unspecified adrenocortical insufficiency; I10 Essential (primary) hypertension; N20.0 Calculus of kidney; D49.7 Neoplasm of unspecified behavior of endocrine glands and other parts of nervous system; G40.909 Epilepsy, unspecified, not intractable, without status epilepticus; Z86.73 Personal history of transient ischemic attack (TIA), and cerebral infarction without residual deficits
CPT/HCPCS: 36415; 70450; 70551; 71045; 76770; 80048; 80053; 80061; 80307; 81003; 82140; 82306; 82550; 82553; 82607; 82746; 82962; 83036; 84439; 84443; 84484; 85025; 85610; 85651; 85730; 86592; 87081; 87086; 87181; 93005; 93880; 95819; 99285